=== PATIENT | male | born 1975 | race Caucasian/White ===

== ENCOUNTER → 2017-08-13 12:36 | Outpatient (CLI) | payer OTHER, SELFPAY ==
--- NOTE | 2017-08-13 12:45 | MRI_ITS ---
STUDY: MRI CERVICAL SPINE WITHOUT CONTRAST REASON FOR EXAM: Male, 42 years old. Neck pain and right shoulder pain with right arm pain and weakness TECHNIQUE: Standardized fat and water weighted pulse sequences were obtained in the sagittal and axial planes. COMPARISON: None FINDINGS: Normal foramen magnum and brainstem-cervical cord junction. Normal craniovertebral junction. Normal anterior atlantoaxial articulation. Normal odontoid process. There is reversal of the normal cervical lordosis. Normal vertebral bodies and posterior osseous elements. C2-3: Normal endplates. Normal disc height, signal and morphology. Normal central canal and intervertebral neural foramina. C3-4: Normal endplates. Normal disc height, signal and morphology. Normal central canal and intervertebral neural foramina. C4-5: Disc osteophyte complex with minimal central canal stenosis. C5-6: Disc osteophyte complex with mild central canal stenosis and mild right foraminal stenosis. C6-7: Disc osteophyte complex with mild to moderate central canal stenosis. C7-T1: Normal endplates. Normal disc height, signal and morphology. Normal central canal and intervertebral neural foramina. Normal cervical cord. Normal visualized soft tissue structures. MRI/Spine Cervical (Routine) IMPRESSION: Multilevel degenerative disc disease as described. Mild right foraminal stenosis at C5-6. Mild to moderate central canal stenosis at C6-7. No cord pathology is seen. Electronically Signed: David Gabriel MD at 1:27 EDT Tel , Service support ,
== END ==
PROVIDERS: Family Provider Family Medicine; PCP Family Medicine
DX: M54.2 Cervicalgia (principal); M25.511 Pain in right shoulder; R29.898 Other symptoms and signs involving the musculoskeletal system; R20.0 Anesthesia of skin
CPT/HCPCS: 72141

== ENCOUNTER → 2020-04-02 12:23 | Outpatient (CLI) | payer OTHER, SELFPAY ==
[2020-04-02 15:35] LABS: Absolute Lymphocyte Count 1.96 X10^3/uL (0.83-4.51); Absolute Neutrophil Count 3.5 X10^3/uL (2.0-7.7); Basophil# 0.04 X10^3/uL; Basophil% 0.6 % (0-1); Eosinophil# 0.19 X10^3/uL; Hematocrit 43.3 % (40-54); Hemoglobin 13.8 g/dL (13.0-16.5); Lymphocyte # 1.96 X10^3/ul (4.0); Lymphocyte % 31.3 % (19-41); Mean Corp Hgb Conc 31.9 g/dL (32-36); Mean Corpuscular Hgb 28.6 pg (27.0-32.0); Mean Corpuscular Volume 89.6 fL (80-94); Mean Platelet Vol. 10.1 fl (6.2-12.0); Monocyte# 0.43 X10^3/uL; Monocyte% 6.9 % (0-10); NRBC Flagged by Analyzer 0 % (0-5); Neutrophil # 3.53 X10^3/uL (2.7-7.7); Neutrophil % 56.3 % (47-70); Platelet Count 323 K/mm3 (150-450); RBC Distribution Width CV 12.7 % (11.6-14.6); RBC Distribution Width SD 41.8 fl (35.1-43.9); Red Blood Count 4.83 M/mm3 (4.6-6.2); White Blood Count 6.3 K/mm3 (4.4-11.0)
[2020-04-02 15:56] LABS: ALB/GLOB Ratio 1.1 RATIO (0.9-2.4); AST(SGOT) 21 U/L (15-37); Alanine Aminotransfer ALT/SGPT 32 U/L (16-61); Albumin, Serum 4.1 g/dL (3.2-5.0); Alkaline Phosphatase 104 U/L (45-117); Anion Gap 3 (5-15); BUN 18 mg/dL (7-18); BUN/Creat Ratio 17.8 RATIO (10-20); Calcium,Total 8.9 mg/dL (8.5-10.1); Chloride 106 mmol/L (98-107); Creatinine, Serum 1.01 mg/dL (0.70-1.30); EST Glomerular Filtration Rate 86 mL/min (>60); Est Glom Filt Rate - Afr Amer 104 mL/min (>60); Ferritin 38 ng/mL (26-388); Globulin 3.7 g/dL (2.2-4.2); Glucose 80 mg/dL (74-106); Lipase 311 U/L (73-393); Potassium 3.7 mmol/L (3.5-5.1); Protein, Total 7.8 g/dL (6.4-8.2); Sodium Level 139 mmol/L (136-145)
[2020-04-02 16:05] LABS: Vitamin B12 572 pg/mL (211-911)
[2020-04-05 14:28] LABS: H. Pylori Antibody (IgG) 0.53 (0.00-0.79)
[2020-04-07 07:07] LABS: Beef <0.10 kU/L (Class 0); Corn <0.10 kU/L (Class 0); Egg, Whole <0.10 kU/L (Class 0); Milk (Cow) <0.10 kU/L (Class 0); Peanut <0.10 kU/L (Class 0); Pork <0.10 kU/L (Class 0); Soybean <0.10 kU/L (Class 0); Wheat <0.10 kU/L (Class 0)
[2020-04-07 13:23] LABS: Chocolate <0.10 kU/L (Class 0)
== END ==
PROVIDERS: PCP Family Medicine; Referring Provider Family Medicine; Visit Provider Family Medicine
DX: R53.83 Other fatigue (principal); J30.9 Allergic rhinitis, unspecified; R10.13 Epigastric pain
CPT/HCPCS: 80053; 82607; 82728; 83690; 84443; 85025; 86003; 86005; 86677

== ENCOUNTER → 2020-12-06 09:08 | Outpatient (CLI) | payer OTHER, SELFPAY ==
[2020-12-06 10:43] LABS: Absolute Lymphocyte Count 1.86 X10^3/uL (0.83-4.51); Absolute Neutrophil Count 3.9 X10^3/uL (2.0-7.7); Basophil# 0.04 X10^3/uL; Basophil% 0.6 % (0-1); Eosinophil# 0.12 X10^3/uL; Eosinophils% 1.9 % (0-5); Hematocrit 40.5 % (40-54); Hemoglobin 12.9 g/dL (13.0-16.5); Lymphocyte # 1.86 X10^3/ul (0.83-4.51); Lymphocyte % 28.8 % (19-41); Mean Corp Hgb Conc 31.9 g/dL (32-36); Mean Corpuscular Hgb 25.9 pg (27.0-32.0); Mean Corpuscular Volume 81.2 fL (80-94); Mean Platelet Vol. 10.2 fl (6.2-12.0); Monocyte% 7.7 % (0-10); NRBC Flagged by Analyzer 0 % (0-5); Neutrophil # 3.87 X10^3/uL (2.7-7.7); Neutrophil % 59.9 % (47-70); Platelet Count 281 K/mm3 (150-450); RBC Distribution Width CV 13.8 % (11.6-14.6); RBC Distribution Width SD 39.9 fl (35.1-43.9); Red Blood Count 4.99 M/mm3 (4.6-6.2); White Blood Count 6.5 K/mm3 (4.4-11.0)
[2020-12-06 11:50] LABS: ALB/GLOB Ratio 1.2 RATIO (0.9-2.4); AST(SGOT) 23 U/L (15-37); Alanine Aminotransfer ALT/SGPT 28 U/L (16-61); Albumin, Serum 4.1 g/dL (3.2-5.0); Alkaline Phosphatase 99 U/L (45-117); Anion Gap 4 (5-15); BUN 26 mg/dL (7-18); BUN/Creat Ratio 23.9 RATIO (10-20); Calcium,Total 8.6 mg/dL (8.5-10.1); Chloride 105 mmol/L (98-107); Cholesterol 169 mg/dL (200); Creatinine, Serum 1.09 mg/dL (0.70-1.30); EST Glomerular Filtration Rate 78 mL/min (>60); Est Glom Filt Rate - Afr Amer 95 mL/min (>60); Globulin 3.3 g/dL (2.2-4.2); Glucose 82 mg/dL (74-106); High Density Lipoprotein 32 mg/dL; Potassium 3.8 mmol/L (3.5-5.1); Protein, Total 7.4 g/dL (6.4-8.2); Sodium Level 138 mmol/L (136-145); Thyroid Stim Hormone (TSH) 2.01 uIU/mL (0.358-3.74); Triglycerides 143 mg/dL; Very Low Density Lipoprotein 29 mg/dL (5-40)
== END ==
PROVIDERS: PCP Family Medicine; Referring Provider Family Medicine; Visit Provider Family Medicine
DX: R41.89 Other symptoms and signs involving cognitive functions and awareness (principal); F32.89 Other specified depressive episodes; Z13.220 Encounter for screening for lipoid disorders
CPT/HCPCS: 36415; 80053; 80061; 84443; 85025

== ENCOUNTER → 2021-12-12 | Outpatient (CLI) | payer BC, SELFPAY ==
[2021-12-12 10:07] LABS: Absolute Lymphocyte Count 2.35 X10^3/uL (0.83-4.51); Absolute Neutrophil Count 5.7 X10^3/uL (2.0-7.7); Basophil# 0.04 X10^3/uL; Basophil% 0.4 % (0-1); Eosinophils% 3.2 % (0-5); Hematocrit 45.2 % (40-54); Hemoglobin 14.3 g/dL (13.0-16.5); Lymphocyte # 2.35 X10^3/ul (0.83-4.51); Lymphocyte % 24.7 % (19-41); Mean Corp Hgb Conc 31.6 g/dL (32-36); Mean Corpuscular Hgb 27.1 pg (27.0-32.0); Mean Corpuscular Volume 85.6 fL (80-94); Mean Platelet Vol. 10.1 fl (6.2-12.0); Monocyte# 1.03 X10^3/uL; Monocyte% 10.8 % (0-10); NRBC Flagged by Analyzer 0 % (0-5); Platelet Count 249 K/mm3 (150-450); RBC Distribution Width CV 14.1 % (11.6-14.6); RBC Distribution Width SD 44.1 fl (35.1-43.9); Red Blood Count 5.28 M/mm3 (4.6-6.2); White Blood Count 9.5 K/mm3 (4.4-11.0)
[2021-12-12 10:27] LABS: Microalbumin,Random Urine 8.2 mg/L (NO RANGE EST.)
[2021-12-12 10:35] LABS: Vitamin D,25 Hydroxy 34.6 ng/mL
[2021-12-12 10:44] LABS: ALB/GLOB Ratio 1.3 RATIO (0.9-2.4); AST(SGOT) 30 U/L (15-37); Alanine Aminotransfer ALT/SGPT 31 U/L (16-61); Albumin, Serum 4.2 g/dL (3.2-5.0); Alkaline Phosphatase 102 U/L (45-117); Anion Gap 3 (5-15); BUN 21 mg/dL (7-18); BUN/Creat Ratio 19.8 RATIO (10-20); Chloride 109 mmol/L (98-107); Cholesterol 149 mg/dL (200); Creatinine, Serum 1.06 mg/dL (0.70-1.30); EST Glomerular Filtration Rate 80 mL/min (>60); Est Glom Filt Rate - Afr Amer 97 mL/min (>60); Globulin 3.2 g/dL (2.2-4.2); Glucose 95 mg/dL (74-106); High Density Lipoprotein 35 mg/dL; Potassium 3.8 mmol/L (3.5-5.1); Protein, Total 7.4 g/dL (6.4-8.2); Sodium Level 140 mmol/L (136-145); Triglycerides 125 mg/dL; Very Low Density Lipoprotein 25 mg/dL (5-40)
== END | disposition home or self-care (01) ==
PROVIDERS: PCP Family Medicine; Visit Provider Family Medicine
DX: Z00.00 Encounter for general adult medical examination without abnormal findings (principal)
CPT/HCPCS: 36415; 80053; 80061; 82043; 82306; 82570; 85025

== ENCOUNTER → 2022-06-15 | Outpatient (CLI) | payer BC, SELFPAY ==
[2022-06-15 10:15] LABS: Erythrocyte Sedimentation Rate 2 mm/hr (0-20)
[2022-06-15 10:22] LABS: Vitamin D,25 Hydroxy 26.5 ng/mL
[2022-06-15 10:56] LABS: ALB/GLOB Ratio 1.1 RATIO (0.9-2.4); AST(SGOT) 21 U/L (15-37); Alanine Aminotransfer ALT/SGPT 25 U/L (16-61); Albumin, Serum 3.9 g/dL (3.2-5.0); Alkaline Phosphatase 97 U/L (45-117); Anion Gap 7 (5-15); BUN 18 mg/dL (7-18); BUN/Creat Ratio 17.1 RATIO (10-20); CRP < 2.90 mg/L (0.0-3.0); Calcium,Total 8.9 mg/dL (8.5-10.1); Chloride 107 mmol/L (98-107); Creatinine, Serum 1.05 mg/dL (0.70-1.30); EST Glomerular Filtration Rate 81 mL/min (>60); Est Glom Filt Rate - Afr Amer 98 mL/min (>60); GGTP 30 U/L (15-85); Globulin 3.5 g/dL (2.2-4.2); Glucose 99 mg/dL (74-106); Lipase 190 U/L (73-393); Potassium 3.8 mmol/L (3.5-5.1); Protein, Total 7.4 g/dL (6.4-8.2); Sodium Level 139 mmol/L (136-145)
[2022-06-15 14:10] LABS: Microalbumin:Creatinine Ratio 3.9 mg/g CRE (<30 mg/g CRE)
== END | disposition home or self-care (01) ==
LOC: MFPLAB 08:29
PROVIDERS: PCP Family Medicine; Referring Provider Family Medicine; Visit Provider Family Medicine
DX: I12.9 Hypertensive chronic kidney disease with stage 1 through stage 4 chronic kidney disease, or unspecified chronic kidney disease (principal); N18.2 Chronic kidney disease, stage 2 (mild); R10.84 Generalized abdominal pain
CPT/HCPCS: 36415; 80053; 82043; 82306; 82570; 82977; 83690; 85652; 86140

== ENCOUNTER → 2022-06-19 | Outpatient (CLI) | payer BC, SELFPAY ==
--- NOTE | 2022-06-19 08:00 | US_ITS ---
STUDY: ABDOMINAL ULTRASOUND - RIGHT UPPER QUADRANT REASON FOR VISIT: Male, 47 years old colicky post-prandial from fatty meal abdominal pain and loose b TECHNIQUE: Ultrasound evaluation of the right upper quadrant was performed with real-time and static aaron-scale imaging. TECHNICAL QUALITY: Adequate. COMPARISON: None. FINDINGS: Liver: The liver measures 16.2 cm. There is increased echogenicity consistent with fatty infiltration. The bile ducts are within normal limits. There is hepatic color flow. The direction of portal flow is hepatopetal. There is no demonstrated mass lesion. Gallbladder: Normal distended gallbladder. The gallbladder wall measures 3 mm. There is a negative sonographic Whiteside''s sign. There is no pericholecystic fluid. There are no gallstones. Common Bile Duct (C.B.D.): The common bile duct measures 4 mm. Pancreas: Normal size of the head, body and tail of the pancreas. There is normal echogenicity of the pancreas. There is no demonstrated pancreatic mass or cyst. Right Kidney: Normal size of the right kidney. The right kidney measures 11 cm x 5.2 cm x 5.1 cm. Normal renal cortex. The right cortex measures 1.8 cm. There is no demonstrated renal mass or cyst. There is no right hydronephrosis. US/Abdomen Limited IMPRESSION: Diffuse fatty infiltration of the liver. Electronically Signed: Horace Wan MD at 15:18 EST ,
== END | disposition home or self-care (01) ==
PROVIDERS: PCP Family Medicine; Referring Provider Family Medicine; Visit Provider Family Medicine
DX: R10.84 Generalized abdominal pain (principal)
CPT/HCPCS: 76705

== ENCOUNTER → 2022-06-29 | Outpatient (CLI) | payer BC, SELFPAY ==
--- NOTE | 2022-06-29 07:24 | US_ITS ---
STUDY: ABDOMINAL ULTRASOUND - ELASTOGRAPHY REASON FOR VISIT: Male, 47 years old. Fatty infiltration of the liver. TECHNIQUE: Liver stiffness measurements were obtained on a [employer] RS 85 ultrasound machine using a CA 1-7 probe following the SRU guidelines. 3 measurements were obtained using a 2-D-SWE method. The IQR/M was 19% suggesting a quality data set. TECHNICAL QUALITY: Adequate. COMPARISON: Comparison is made with prior study dated 06/19/2022. FINDINGS: Liver: Fatty infiltration of the liver. Median liver stiffness measured 5.7 kPa. US/Elastography Parenchyma/Organ IMPRESSION: Liver stiffness measures 5.7 kPa compatible with F0-F1 (Normal to mild liver fibrosis) Metavir score. Electronically Signed: Horace Wan MD at 10:32 EST ,
== END | disposition home or self-care (01) ==
PROVIDERS: PCP Family Medicine; Referring Provider Family Medicine; Visit Provider Family Medicine
DX: K76.0 Fatty (change of) liver, not elsewhere classified (principal)
CPT/HCPCS: 76981

== ENCOUNTER → 2022-07-05 | Outpatient (CLI) | payer BC, SELFPAY | END | disposition home or self-care (01) | LOC: LABSPEC 10:59 | PROVIDERS: PCP Family Medicine; Referring Provider Family Medicine; Visit Provider Family Medicine | DX: K76.0 Fatty (change of) liver, not elsewhere classified (principal) | CPT/HCPCS: 87506 ==

== ENCOUNTER 2022-08-18 07:08 | Day surgery (SDC) | payer BC, SELFPAY ==
[2022-08-18 07:32] VITALS: BP 137/85; PULSE 67; RESP 16; TEMP 36.4; O2SAT 100; BMI 31.5
[2022-08-18] MEDS: Lactated Ringers 1,000 ML 15 ML IV (07:41)
--- NOTE | 2022-08-18 08:14 | HP.PCM_ITS ---
HPI - General HPI Narrative LENKA YBARRA, is a 47 M who presents for screening colonoscopy. Patient is never had a colonoscopy in the past. He denies any abdominal pain or blood in the stool. He has no family history of colon cancer. He is not on any blood thinners. [facility] Medical History (Updated 08/14/22 @ 12:14 by Roxanna Guillen) Alcohol use Allergic rhinitis, unspecified Back pain Born premature at 35 weeks of completed gestation CPAP (continuous positive airway pressure) dependence Fatty liver Former smoker GERD (gastroesophageal reflux disease) History of echocardiogram HTN (hypertension) Injury of back Leg cramps Migraine headache Wears glasses Home Medications cyclobenzaprine 10 mg tablet 10 mg PO HS PRN Spasms 07/14/22 [History Last Taken Unknown] famotidine 20 mg tablet 20 mg PO BID 07/14/22 [History Last Taken Unknown] naproxen 500 mg tablet 500 mg PO BID PRN Pain 07/14/22 [History Last Taken Unknown] telmisartan 20 mg tablet 20 mg PO QHS 07/14/22 [History Last Taken Unknown] Allergy/AdvReac Type Severity Reaction Status Date / Time animal dander Allergy Itching Verified 08/18/22 07:32 Environmental Allergies: Allergy Other Verified 08/18/22 07:32 Uncoded house dust Allergy Itching Verified 08/18/22 07:32 mold Allergy Itching Verified 08/18/22 07:32 pollen extracts Allergy Itching Verified 08/18/22 07:32 Family History (Updated 07/14/22 @ 10:17 by Nelida Dela Cruz) Mother Colon polyps Diabetes Surgical History (Updated 07/14/22 @ 10:15 by Nelida Dela Cruz) History of vasectomy Hx of appendectomy Social History (Updated 07/14/22 @ 10:17 by Nelida Dela Cruz) current occupational status: employed Smoking Status: Former smoker Past Medical/Surgical History Planned Operation Planned Operative Procedure/s: CSCOPE OA Previous Hospitalizations/Surgeries HX Hospitalizations: No Any Problems With Anesthesia: No (SHIVERING) You/Your Family Experience Fever (Hyperthermia) With Anes: No Cholinesterase deficiency: No Cardiovascular Hx Hypertension: Yes (BORDERLINE/PREVENTIVE DUE TO FAMILY HX) Respiratory Hx Sleep Apnea: Yes CPAP: Yes BIPAP: No Hx Respiratory Tract Infection/Cold (presently): No Result (for STOP score): Positive Smoking Status: Former smoker Neurological Does patient have nerve stimulator: No Reproduction : No Miscellaneous Recent Exposure to Contagious Disease: No Allergies animal dander Allergy (Verified 08/18/22 07:32) Itching Weekly allergy shot Environmental Allergies: Uncoded Allergy (Verified 08/18/22 07:32) Other Weekly allergy shot house dust Allergy (Verified 08/18/22 07:32) Itching Weekly allergy shot mold Allergy (Verified 08/18/22 07:32) Itching Weekly allergy shot pollen extracts Allergy (Verified 08/18/22 07:32) Itching Weekly allergy shot Discharge Is Pt Admitted From a Group Home, or a Senior Living: No After D/C, Where Do you Plan to Go: Return Home Vital Signs Vital Signs Vital Signs: 08/18/22 07:32 08/18/22 07:32 Temperature 97.6 F L Temperature Source Temporal Pulse Rate 67 Respiratory Rate 16 Respiratory Pattern Normal Blood Pressure 137/85 H Blood Pressure Mean 102 Blood Pressure Source Monitor Blood Pressure Position Semi-Fowlers Blood Pressure Location Left Arm Pulse Ox 100 Oxygen Delivery Method Room Air Weight Weight: 207 lb 3.752 oz Body Mass Index (BMI) 31.5 Physical Exam Const alert and oriented x3 HEENT normocephalic Eyes PERRL Resp normal respiratory effort and normal air movement Cardio regular rate and regular rhythm GI soft to palpation, non-tender and non-distended Extremity normal to inspection Assessment & Plan Assessment/Plan (1) Encounter for screening for malignant neoplasm of colon: PLAN: I explained endoscopy in detail to the patient. I explained the risks including but not limited to stroke or heart attack with anesthesia, perforation of the GI tract, bleeding, infection. I explained that any of these could necessitate further emergency surgery. The patient understands and all questions were answered sufficiently. The patient wishes to proceed with proced ure. Eddie Hightower MD Pager: [facility] [address] [place] [address], [address] [place] [address] Office: Surgery Risks - Colonoscopy Risks Include but are not Limited To: Risks include but are not limited to: Bleeding, perforation requiring further surgery, inability to complete colonoscopy requiring barium enema.
[2022-08-18 08:39] VITALS: BP 110/75; BP 137/85; PULSE 70; RESP 16; TEMP 36.4; O2SAT 98
--- NOTE | 2022-08-18 08:39 | OP.COLON_ITS ---
Patient Name: Justin Scruggs Procedure Date: 08/18/2022 8:20 AM Date of : 1975 Age: 47 Procedure: Colonoscopy Indications: Screening for colorectal malignant neoplasm Providers: Eddie Hightower MD Referring MD: Eddie Hightower MD Medicines: Monitored Anesthesia Care Patient Profile: This is a 47 year old male. Refer to note in patient chart for documentation of history and physical. Last Colonoscopy: none. The patient's first colonoscopy is today. Complications: No immediate complications. Procedure: Pre-Anesthesia Assessment: - Prior to the procedure, a History and Physical was performed, and patient medications and allergies were reviewed. The patient's tolerance of previous anesthesia was also reviewed. The risks and benefits of the procedure and the sedation options and risks were discussed with the patient. All questions were answered, and informed consent was obtained. Prior Anticoagulants: The patient has taken no previous anticoagulant or antiplatelet agents. After reviewing the risks and benefits, the patient was deemed in satisfactory condition to undergo the procedure. After I obtained informed consent, the scope was passed under direct vision. Throughout the procedure, the patient's blood pressure, pulse, and oxygen saturations were monitored continuously. The Colonoscope was introduced through the anus and advanced to the cecum, identified by the appendiceal orifice, ileocecal valve and palpation. The colonoscopy was performed without difficulty. The patient tolerated the procedure well. The quality of the bowel preparation was good. Scope In: 8:25:23 AM Scope Withdrawal Time 0 hours 6 minutes 1 second Scope Out: 8:35:31 AM Total Procedure Duration Time 0 hours 10 minutes 8 seconds Findings: The entire examined colon appeared normal on direct and retroflexion views. Impression: - The entire examined colon is normal on direct and retroflexion views. - No specimens collected. Recommendation: - Discharge patient to home. - Resume previous diet. - Continue present medications. - Repeat colonoscopy in 10 years for screening purposes. Procedure Code(s): --- Professional --- 60671, Colonoscopy, flexible; diagnostic, including collection of specimen(s) by brushing or washing, when performed (separate procedure) Diagnosis Code(s): --- Professional --- Z12.11, Encounter for screening for malignant neoplasm of colon CPT copyright 2017 [employer]. All rights reserved. The codes documented in this report are preliminary and upon heater installer review may be revised to meet current compliance requirements. Eddie Hightower MD 08/18/2022 8:39:17 AM This report has been signed electronically. Number of Addenda: 0 Note Initiated On: 08/18/2022 8:20 AM
--- NOTE | 2022-08-18 08:40 | OP.CCLET_ITS ---
08/18/2022 Ozzy Morejon [address] [place] [address] Re : Colonoscopy procedure for Justin [facility] Dear Dr. Morejon This procedure was performed on Thursday, August 18, 2022. My impressions and recommendations are as follows: Impressions : - The entire examined colon is normal on direct and retroflexion views. - No specimens collected. Recommendations : - Discharge patient to home. - Resume previous diet. - Continue present medications. - Repeat colonoscopy in 10 years for screening purposes. My findings are described in the full procedure note, which is enclosed. If I can be of further assistance, please feel free to contact me at Doctor phone number(s): , Work: . Sincerely, Eddie Hightower MD 08/18/2022 8:39:17 AM This report has been signed electronically.
[2022-08-18 08:45] VITALS: BP 127/77; BP 137/85; PULSE 68; RESP 16; O2SAT 94
[2022-08-18 08:50] VITALS: BP 120/76; BP 137/85; PULSE 65; RESP 16; O2SAT 95
[2022-08-18 08:55] VITALS: BP 128/73; BP 137/85; PULSE 60; RESP 14; TEMP 36.4; O2SAT 94
[2022-08-18 09:21] VITALS: BP 137/85
== END 2022-08-18 09:24 | disposition home or self-care (01) ==
LOC: EN 07:09 → AC 07:10
PROVIDERS: PCP Family Medicine; Referring Provider Family Medicine; Visit Provider Surgery
PROC: 0DJD8ZZ Inspection of Lower Intestinal Tract, Via Natural or Artificial Opening Endoscopic (ICD-10-PCS; CPT 45378; principal; 2022-08-18 08:25)
DX: Z12.11 Encounter for screening for malignant neoplasm of colon (principal); I10 Essential (primary) hypertension; Z87.891 Personal history of nicotine dependence
CPT/HCPCS: 45378; J7120; J2405

== ENCOUNTER → 2023-02-05 | Outpatient (CLI) | payer BC, SELFPAY ==
[2023-02-05 11:35] LABS: AST(SGOT) 20 U/L (15-37); Alanine Aminotransfer ALT/SGPT 31 U/L (16-61); Albumin, Serum 3.6 g/dL (3.2-5.0); Alkaline Phosphatase 104 U/L (45-117); Anion Gap 7 (5-15); BUN 17 mg/dL (7-18); BUN/Creat Ratio 14.2 RATIO (10-20); Calcium,Total 8.3 mg/dL (8.5-10.1); Chloride 109 mmol/L (98-107); Cholesterol 169 mg/dL (200); EST Glomerular Filtration Rate 69 mL/min (>60); Est Glom Filt Rate - Afr Amer 84 mL/min (>60); Globulin 3.5 g/dL (2.2-4.2); Glucose 101 mg/dL (74-106); High Density Lipoprotein 33 mg/dL; Potassium 3.9 mmol/L (3.5-5.1); Protein, Total 7.1 g/dL (6.4-8.2); Sodium Level 140 mmol/L (136-145); Triglycerides 192 mg/dL; Very Low Density Lipoprotein 38 mg/dL (5-40)
[2023-02-05 11:53] LABS: Microalbumin,Random Urine 8.6 mg/L (NO RANGE EST.); Microalbumin:Creatinine Ratio 3.1 mg/g CRE (<30 mg/g CRE)
== END | disposition home or self-care (01) ==
PROVIDERS: PCP Family Medicine; Referring Provider Family Medicine; Visit Provider Family Medicine
DX: I12.9 Hypertensive chronic kidney disease with stage 1 through stage 4 chronic kidney disease, or unspecified chronic kidney disease (principal); Z13.220 Encounter for screening for lipoid disorders; N18.2 Chronic kidney disease, stage 2 (mild)
CPT/HCPCS: 36415; 80053; 80061; 82043; 82570

== ENCOUNTER → 2023-02-20 | Outpatient (CLI) | payer BC, SELFPAY ==
--- NOTE | 2023-02-20 10:08 | RAD_ITS ---
INDICATION: possible foreign body, thorn left finger -- Left ring finger EXAMINATION/TECHNIQUE: X-RAY - LEFT HAND XR Fingers Min 2 Views 3 VIEWS COMPARISON: FINDINGS: SOFT TISSUES: No soft tissue swelling or gas. No radiopaque foreign body. BONES/JOINTS: No acute fracture or subluxation.. Normal alignment. Preservation of the joint space.. No sclerotic or destructive changes observed. RAD/Finger(s) Min 2 Views IMPRESSION: Negative. Electronically Signed: Sid Forrester MD at 10:46 EDT ,
== END | disposition home or self-care (01) ==
LOC: MTRAD 10:08
PROVIDERS: PCP Family Medicine; Referring Provider Nurse Practitioner Family; Visit Provider Nurse Practitioner Family
DX: S60.459A Superficial foreign body of unspecified finger, initial encounter (principal); M79.645 Pain in left finger(s)
CPT/HCPCS: 73140

== ENCOUNTER → 2023-08-14 | Outpatient (CLI) | payer BC, SELFPAY ==
[2023-08-14 11:01] LABS: ALB/GLOB Ratio 1.1 RATIO (0.9-2.4); AST(SGOT) 25 U/L (15-37); Alanine Aminotransfer ALT/SGPT 33 U/L (16-61); Albumin, Serum 3.8 g/dL (3.2-5.0); Alkaline Phosphatase 102 U/L (45-117); Anion Gap 7 (5-15); BUN 14 mg/dL (7-18); BUN/Creat Ratio 14.4 RATIO (10-20); Chloride 108 mmol/L (98-107); Creatinine, Serum 0.97 mg/dL (0.70-1.30); EST Glomerular Filtration Rate 88 mL/min (>60); Est Glom Filt Rate - Afr Amer 107 mL/min (>60); Globulin 3.5 g/dL (2.2-4.2); Glucose 109 mg/dL (74-106); Potassium 3.9 mmol/L (3.5-5.1); Protein, Total 7.3 g/dL (6.4-8.2); Sodium Level 139 mmol/L (136-145)
== END | disposition home or self-care (01) ==
LOC: MFPLAB 08:35
PROVIDERS: PCP Family Medicine; Visit Provider Family Medicine
DX: I10 Essential (primary) hypertension (principal)
CPT/HCPCS: 36415; 80053

== ENCOUNTER → 2023-10-30 | Outpatient (CLI) | payer BC, SELFPAY ==
--- NOTE | 2023-10-30 15:57 | RAD_ITS ---
STUDY: X-RAY - RIGHT WRIST REASON FOR EXAM: Male, 48 years old. Wrist pain. Right wrist pain and swelling after falling yesterday. TECHNIQUE: 3 views of the right wrist were obtained. COMPARISON: None. FINDINGS: Normal visualized distal radius and ulna. Normal radiocarpal articulation. Normal distal radioulnar articulation. Normal carpal bones. Normal carpal articulations. Normal carpometacarpal articulation of the thumb. Normal second through fifth carpometacarpal articulations. Normal visualized metacarpal bones. The soft tissue structures are unremarkable. There is no demonstrated acute fracture. RAD/Wrist min 3 Views IMPRESSION: Normal x-ray examination of the right wrist. Electronically Signed: Raheem Capellan MD at 11:44 EDT ,
== END | disposition home or self-care (01) ==
LOC: MTRAD 15:57
PROVIDERS: PCP Family Medicine; Referring Provider Family Medicine; Visit Provider Family Medicine
DX: M25.531 Pain in right wrist (principal)
CPT/HCPCS: 73110

== ENCOUNTER → 2023-11-08 | Outpatient (CLI) | payer BC, SELFPAY ==
--- NOTE | 2023-11-08 14:21 | RAD_ITS ---
STUDY: X-RAY - RIGHT WRIST REASON FOR EXAM: Male, 48 years old. Evaluate for distal radial fracture. TECHNIQUE: 3 view(s) of the wrist were obtained. COMPARISON: October 30, 2023 FINDINGS: Oblique nondisplaced fracture at the base of the radial styloid with intra-articular extension. Normal radiocarpal articulation. Normal distal radioulnar articulation. Normal carpal bones. Normal carpal articulations. Normal carpometacarpal articulation of the thumb. Normal second through fifth carpometacarpal articulations. Normal visualized metacarpal bones. Diffuse mild soft tissue swelling. RAD/Wrist min 3 Views IMPRESSION: Radial styloid fracture with intra-articular extension. Soft tissue swelling. Electronically Signed: Kevin Chan MD at 15:02 EDT ,
== END | disposition home or self-care (01) ==
LOC: MTRAD 14:17
PROVIDERS: PCP Family Medicine; Referring Provider Family Medicine; Visit Provider Family Medicine
DX: S52.501A Unspecified fracture of the lower end of right radius, initial encounter for closed fracture (principal); X58.XXXA Exposure to other specified factors, initial encounter
CPT/HCPCS: 73110

== ENCOUNTER → 2023-11-28 | Outpatient (CLI) | payer BC, SELFPAY ==
--- NOTE | 2023-11-28 16:21 | RAD_ITS ---
STUDY: X-RAY - RIGHT WRIST REASON FOR EXAM: Male, 48 years old. fu fx TECHNIQUE: 3 view(s) of the wrist were obtained. COMPARISON: None. FINDINGS: Healing nondisplaced oblique fracture of the radial styloid (Garcia fracture) with bony bridging. Normal radiocarpal articulation. Normal distal radioulnar articulation. Normal carpal bones. Normal carpal articulations. Normal carpometacarpal articulation of the thumb. Normal second through fifth carpometacarpal articulations. Normal visualized metacarpal bones. The soft tissue structures are unremarkable. RAD/Wrist min 3 Views IMPRESSION: Healing Garcia fracture. Electronically Signed: Ihsan Wilhelm MD at 16:43 EDT ,
== END | disposition home or self-care (01) ==
PROVIDERS: PCP Family Medicine; Referring Provider Family Medicine; Visit Provider Family Medicine
DX: S52.501A Unspecified fracture of the lower end of right radius, initial encounter for closed fracture (principal); I10 Essential (primary) hypertension; X58.XXXA Exposure to other specified factors, initial encounter
CPT/HCPCS: 73110

== ENCOUNTER → 2024-04-21 | Outpatient (CLI) | payer BC, SELFPAY ==
--- NOTE | 2024-04-21 07:49 | CDU_ITS ---
Reason For Study: Amaurosis Fugax Rt. Velocities/BP Lt. Velocities/BP Prox CCA 120/9 cm/sec. Prox CCA 101/24 cm/sec. Mid CCA 129/19 cm/sec. Mid CCA 97/23 cm/sec. Dist CCA 107/29 cm/sec. Dist CCA 99/23 cm/sec. Prox ICA 91/23 cm/sec. Prox ICA 103/30 cm/sec. Mid ICA 84/24 cm/sec. Mid ICA 78/30 cm/sec. Dist ICA 95/38 cm/sec. Dist ICA 84/28 cm/sec. Rt. ICA/CCA = 0.7. Lt. ICA/CCA = 1.1. Prox ECA 138/23 cm/sec. Prox ECA 110/18 cm/sec. Rt. Vert. 60/16 cm/sec. Lt. Vert. 62/17 cm/sec. Right Extracranial There is intimal thickening but no significant atherosclerotic plaque noted in the right common carotid artery. There is no significant atherosclerotic plaque noted in the right internal carotid artery. There is no significant atherosclerotic plaque noted in the right external carotid artery. Antegrade flow is noted in the right vertebral artery. Left Extracranial There is intimal thickening but no significant atherosclerotic plaque noted in the left common carotid artery. There is no significant atherosclerotic plaque noted in the left internal carotid artery. There is no significant atherosclerotic plaque noted in the left external carotid artery. Antegrade flow is noted in the left vertebral artery. Procedure Carotid Duplex [id number]. This is a Carotid Duplex examination using B-mode, color flow and specral Doppler. Exam performed in department. VL/Carotid Duplex Ultrasound Interpretation Summary Normal right extracranial internal carotid. Normal left extracranial internal carotid. Patent and antegrade vertebrals bilaterally. Ordering Physician: Ozzy Morejon Referring Physician: Ozzy Morejon Performed By: Chacha Jarrett, RDCS, RVT
== END | disposition home or self-care (01) ==
PROVIDERS: PCP Family Medicine; Referring Provider Family Medicine; Visit Provider Family Medicine
DX: G45.3 Amaurosis fugax (principal)
CPT/HCPCS: 93880

== ENCOUNTER → 2024-05-12 | Outpatient (CLI) | payer BC, SELFPAY ==
--- NOTE | 2024-05-12 10:06 | MRI_ITS ---
STUDY: MRI BRAIN WITHOUT CONTRAST REASON FOR EXAM: Male, 49 years old. amaurosis fugax, chronic headaches, new onset visual aura TECHNIQUE: Standardized multiplanar fat and water weighted pulse sequences were obtained. COMPARISON: None. FINDINGS: Normal size of the ventricles and extra-axial spaces for the patient''s age. Normal white matter tracts of the supratentorial brain. There is no evidence for recent intracranial ischemia or other cause of cytotoxic edema on diffusion weighted imaging (DWI). Normal T2* images of the brain without demonstrated susceptibility artifact. There is no demonstrated hemosiderin stain. Normal bilateral basal ganglia. Normal thalami. There is no extra-axial fluid accumulation. Normal flow voids within the major intracranial circulation suggesting patency by spin echo criteria. Normal sella turcica, pituitary gland, infundibular stalk, optic chiasm and hypothalamus. Normal tectal plate and pineal gland. Normal midbrain, phillip and medulla. Normal cerebellum. Normal basal cisterns. 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 Normal bilateral internal auditory canals. No demonstrated orbital abnormality, within the constraints of a routine brain study. Normal visualized paranasal sinuses. Normal calvarium and skull base. Normal visualized soft tissue structures. Normal visualized upper cervical spine. MRI/Brain without Contrast IMPRESSION: Normal unenhanced MRI of the brain. Electronically Signed: Ihsan Wilhelm MD at 13:29 EST ,
== END | disposition home or self-care (01) ==
PROVIDERS: PCP Family Medicine; Referring Provider Family Medicine; Visit Provider Family Medicine
DX: G45.3 Amaurosis fugax (principal)
CPT/HCPCS: 70551

== ENCOUNTER → 2024-05-30 | Outpatient (CLI) | payer BC, SELFPAY ==
[2024-05-30 11:07] LABS: ALB/GLOB Ratio 1.1 RATIO (0.9-2.4); AST(SGOT) 21 U/L (15-37); Alanine Aminotransfer ALT/SGPT 30 U/L (16-61); Albumin, Serum 3.9 g/dL (3.2-5.0); Alkaline Phosphatase 98 U/L (45-117); Anion Gap 7 (5-15); BUN 15 mg/dL (7-18); BUN/Creat Ratio 14.9 RATIO (10-20); Calcium,Total 9.2 mg/dL (8.5-10.1); Chloride 108 mmol/L (98-107); Cholesterol 178 mg/dL (200); Creatinine, Serum 1.01 mg/dL (0.70-1.30); EST Glomerular Filtration Rate 84 mL/min (>60); Est Glom Filt Rate - Afr Amer 102 mL/min (>60); Globulin 3.7 g/dL (2.2-4.2); Glucose 102 mg/dL (74-106); High Density Lipoprotein 37 mg/dL; Potassium 3.7 mmol/L (3.5-5.1); Protein, Total 7.6 g/dL (6.4-8.2); Sodium Level 140 mmol/L (136-145); Triglycerides 166 mg/dL; Very Low Density Lipoprotein 33 mg/dL (5-40)
[2024-05-30 11:09] LABS: Microalbumin,Random Urine 12.6 mg/L (NO RANGE EST.); Microalbumin:Creatinine Ratio 6.5 mg/g CRE (<30 mg/g CRE)
== END | disposition home or self-care (01) ==
LOC: MTLAB 08:07
PROVIDERS: PCP Family Medicine; Referring Provider Family Medicine; Visit Provider Family Medicine
DX: Z00.01 Encounter for general adult medical examination with abnormal findings (principal); I12.9 Hypertensive chronic kidney disease with stage 1 through stage 4 chronic kidney disease, or unspecified chronic kidney disease; K76.0 Fatty (change of) liver, not elsewhere classified; N18.2 Chronic kidney disease, stage 2 (mild); Z13.220 Encounter for screening for lipoid disorders
CPT/HCPCS: 36415; 80053; 80061; 82043; 82570

== ENCOUNTER → 2025-03-06 | Outpatient (CLI) | payer BC, SELFPAY ==
--- OUTSIDE RECORDS SUMMARY | 2025-03-06 11:15 | XMS RPT_ITS | CCD ---
Author Organization [facility] Care Team Providers Care Licensed Club Manager Name Role Phone Dr. Ozzy Morejon Primary Care Provider Nelida Dela Cruz Attending Provider Unavailable Dr. Ozzy Morejon Referring Provider Dr. Eddie Hightower Attending Provider Dr. Eddie Hightower Other Provider Dr. Ozzy Morejon Primary Care Provider Dr. Ozzy Morejon Referring Provider [phone] Mervin Guerrero Attending Provider [phone] Ozzy Morejon Primary Care Unavailable Anshul Alfred Attending Unavailable Anshul Alfred Referring Unavailable Jean-Pierre, Ozzy Primary Care Unavailable Anshul Alfred Attending Unavailable Anshul Alfred Referring Unavailable Judy, Ozzy Attending Unavailable Morejon, Ozzy Referring Unavailable Morejon, Ozzy Primary Care Unavailable Morejon, Ozzy Primary Care Unavailable Morejon, Ozzy Attending Unavailable Morejon, Ozzy Referring Unavailable Morejon, Ozzy Attending Unavailable Morejon, Ozzy Referring Unavailable Morejon, Ozzy Primary Care Unavailable Morejon, Ozzy Attending Unavailable Morejon, Ozzy Referring Unavailable Morejon, Ozzy Primary Care Unavailable Morejon, Ozzy Primary Care Unavailable Morejon, Ozzy Attending Unavailable Morejon, Ozzy Primary Care Unavailable Morejon, Ozzy Attending Unavailable Morejon, Ozzy Referring Unavailable Allergies Allergy Classification Reported Allergen(s) Allergy Type Date of Onset Reaction(s) Facility (3 sources) house dust allergenic extract Drug Allergy 3 [facility] (3 sources) Mold Extract Drug Allergy 3 [facility] (3 sources) Pollen Allergy to substance 3 [facility] (4 sources) animal dander; Translations: [animal dander] Allergy to substance 3 Itching [facility] (4 sources) Environmental Allergies: Uncoded; Translations: [Environmental Allergies: Uncoded] Allergy to substance 3 Other [facility] (1 source) house dust allergenic extract Drug Allergy 3 [facility] (1 source) Mold Extract Drug Allergy 3 [facility] (1 source) Pollen Drug allergy (disorder) 3 [facility] Medications Current Medications Medication Drug Class(es) Dates Sig (Normalized) Sig (Original) cyclobenzaprine hydrochloride 10 mg oral tablet (3 sources) Muscle Relaxant Start: 07-14-2022 take 10 mg by mouth at bedtime Cyclobenzaprine Active 10 MG PO BEDTIME July 14, 2022 1:00am famotidine 20 mg oral tablet (3 sources) Histamine-2 Receptor Antagonist Start: 07-14-2022 take 20 mg by mouth twice daily Famotidine Active 20 MG PO TWICE A DAY July 14, 2022 1:00am naproxen 500 mg oral tablet (3 sources) Nonsteroidal Anti-inflammatory Drug Start: 07-14-2022 take 500 mg by mouth twice daily Naproxen Active 500 MG PO TWICE A DAY July 14, 2022 1:00am telmisartan 20 mg oral tablet (3 sources) Angiotensin 2 Receptor Moises Start: 07-14-2022 take 20 mg by mouth at bedtime Telmisartan Active 20 MG PO AT BEDTIME July 14, 2022 1:00am Problems Active Problems Problem Classification Problem Date Documented Da te Episodic/Chronic E Codes: Unspecified (3 sources) Traumatic AND/OR non-traumatic injury; Translations: [Activity, gardening and landscaping] 02-22-2023 Episodic Essential hypertension (1 source) Essential (primary) hypertension; Translations: [Essential (primary) hypertension] Onset: 08-20-2023 Chronic Other connective tissue disease (2 sources) Pain in finger; Translations: [Pain in left finger(s)] 02-22-2023 Episodic Other connective tissue disease (2 sources) Foreign body granuloma of soft tissue of left hand; Translations: [Foreign body granuloma of soft tissue, not elsewhere classified, left hand] 02-22-2023 Episodic Other connective tissue disease (2 sources) Swelling of finger ; Translations: [Other specified soft tissue disorders] 02-22-2023 Episodic Other connective tissue disease (1 source) Pain in left finger(s); Translations: [Pain in limb] 02-20-2023 Episodic Other connective tissue disease (1 source) Foreign body granuloma of soft tissue, not elsewhere classified, left hand; Translations: [Foreign body granuloma of skin and subcutaneous tissue] 02-20-2023 Episodic Other connective tissue disease (1 source) Other specified soft tissue disorders; Translations: [Swelling of limb] 02-20-2023 Episodic Other ear and sense organ disorders (2 sources) Hearing disorder; Translations: [Unspecified hearing loss, unspecified ear] 02-20-2023 Chronic Other screening for suspected conditions (not mental disorders or infectious disease) (4 sources) Patient encounter status; Translations: [Encounter for screening for malignant neoplasm of colon] 07-14-2022 Episodic Other upper respiratory disease (2 sources) Seasonal allergy; Translations: [Other seasonal allergic rhinitis] 02-20-2023 Chronic Residual codes; unclassified (3 sources) Dependence on continuous positive airway pressure ventilation; Translations: [Dependence on other enabling machines and devices] 07-14-2022 Chronic Superficial injury; contusion (3 sources) Superficial foreign body of left ring finger; Translations: [Superficial foreign body of left ring finger, initial encounter] 02-22-2023 Episodic Transient cerebral ischemia (1 source) Amaurosis fugax; Translations: [Amaurosis fugax] Onset: 06-05-2024 Chronic Past or Other Problems Problem Classification Problem Date Documented Da te Episodic/Chronic Fracture of upper limb (1 source) Unspecified fracture of the lower end of right radius, initial encounter for closed fracture; Translations: [Unspecified fracture of the lower end of right radius, initial encounter for closed fracture] Onset: 12-13-2023 Episodic Other non-traumatic joint disorders (1 source) Pain in right wrist; Translations: [Pain in right wrist] Onset: 11-07-2023 Episodic Results Test Name Value Interpretation Reference Range Facility Comprehensive Metabolic Prof mejeannette 05-30-2024 Albumin [Mass/Vol] 3.9 g/dL Normal 3.2-5.0 [facility] Comment on above: Order Comment: Order Date: 02/12/24 Order Info: 0786-1 - CMP Order Info: [id number] - LIPID Performed By: #### L 502.0250, L500.4050, L500.4100 #### [facility] [address] [place], [address] Albumin/Globulin [Mass ratio] 1.1 {ratio} Normal 0.9-2.4 [facility] Comment on above: Order Comment: Order Date: 02/12/24 Order Info: 0786-1 - CMP Order Info: [id number] - LIPID Performed By: #### L 502.0250, L500.4050, L500.4100 #### [facility] [address] [place], [address] ALK P 98 U/L Normal 45-117 [facility] Comment on above: Order Comment: Order Date: 02/12/24 Order Info: 0786-1 - CMP Order Info: [id number] - LIPID Performed By: #### L 502.0250, L500.4050, L500.4100 #### [facility] [address] [place], [address] ALT [Catalytic activity/Vol] 30 U/L Normal 16-61 [facility] Comment on above: Order Comment: Order Date: 02/12/24 Order Info: 0786-1 - CMP Order Info: [id number] - LIPID Performed By: #### L 502.0250, L500.4050, L500.4100 #### [facility] [address] [place], [address] AST [Catalytic activity/Vol] 21 U/L Normal 15-37 [facility] Comment on above: Order Comment: Order Date: 02/12/24 Order Info: 0786-1 - CMP Order Info: [id number] - LIPID Performed By: #### L 502.0250, L500.4050, L500.4100 #### [facility] [address] [place], [address] Bilirubin [Mass/Vol] 0.50 mg/dL Normal 0.20-1.00 [facility] Comment on above: Order Comment: Order Date: 02/12/24 Order Info: 0786-1 - CMP Order Info: [id number] - LIPID Result Comment: For patients on eltrombopag therapy, use of Dimension [place] TBIL is not recommended. Performed By: #### L 502.0250, L500.4050, L500.4100 #### [facility] [address] [place], [address] BUN/CRE 14.9 RATIO Normal 10-20 [facility] Comment on above: Order Comment: Order Date: 02/12/24 Order Info: 0786-1 - CMP Order Info: [id number] - LIPID Performed By: #### L 502.0250, L500.4050, L500.4100 #### [facility] [address] [place], [address] CA,Total 9.2 mg/dL Normal 8.5-10.1 [facility] Comment on above: Order Comment: Order Date: 02/12/24 Order Info: 0786-1 - CMP Order Info: [id number] - LIPID Performed By: #### L 502.0250, L500.4050, L500.4100 #### [facility] [address] [place], [address] Chloride [Moles/Vol] 108 mmol/L High 98-107 [facility] Comment on above: Order Comment: Order Date: 02/12/24 Order Info: 0786-1 - CMP Order Info: [id number] - LIPID Performed By: #### L 502.0250, L500.4050, L500.4100 #### [facility] [address] [place], [address] CO2 [Moles/Vol] 25.0 mmol/L Normal 21.0-32.0 [facility] Comment on above: Order Comment: Order Date: 02/12/24 Order Info: 0786-1 - CMP Order Info: [id number] - LIPID Performed By: #### L 502.0250, L500.4050, L500.4100 #### [facility] [address] [place], [address] Creatinine [Mass/Vol] 1.01 mg/dL Normal 0.70-1.30 [facility] Comment on above: Order Comment: Order Date: 02/12/24 Order Info: 0786- - CMP Order Info: [id number] - LIPID Result Comment: The validity of the calculated GFR GFRAA in patients over 70 years has not been determined. Clinical correlation is essential. Performed By: #### L 502.0250, L500.4050, L500.4100 #### [facility] [address] [place], [address] EST GFR - AA 102 mL/min Normal >60 [facility] Comment on above: Order Comment: Order Date: 02/12/24 Order Info: 0786 - CMP Order Info: [id number] - LIPID Result Comment: Afri can Australian GFR Calc Performed By: #### L 502.0250, L500.4050, L500.4100 #### [facility] [address] [place], [address] GAP 7 Normal 5-15 [facility] Comment on above: Order Comment: Order Date: 02/12/24 Order Info: 0786-1 - CMP Order Info: [id number] - LIPID Performed By: #### L 502.0250, L500.4050, L500.4100 #### [facility] [address] [place], [address] GFR/1.73 sq M.predicted among non-blacks MDRD (S/P/Bld) [Vol rate/Area] 84 mL/min/{1.73_m2} Normal >60 [facility] Comment on above: Order Comment: Order Date: 02/12/24 Order Info: 0786-1 - CMP Order Info: [id number] - LIPID Result Comment: Non- GFR Calc Performed By: #### L 502.0250, L500.4050, L500.4100 #### [facility] [address] [place], [address] Globulin (S) [Mass/Vol] 3.7 g/dL Normal 2.2-4.2 [facility] Comment on above: Order Comment: Order Date: 02/12/24 Order Info: 0786- - CMP Order Info: [id number] - LIPID Performed By: #### L 502.0250, L500.4050, L500.4100 #### [facility] [address] [place], [address] Glucose [Mass/Vol] 102 mg/dL Normal 74-106 [facility] Comment on above: Order Comment: Order Date: 02/12/24 Order Info: 0786 - CMP Order Info: [id number] - LIPID Result Comment: Fast ing Glucose result from 100 to 125 mg/dL suggests IMPAIRED HOMEOSTASIS per A.D.A. criteria. Performed By: #### L 502.0250, L500.4050, L500.4100 #### [facility] [address] [place], [address] Potassium [Moles/Vol] 3.7 mmol/L Normal 3.5-5.1 [facility] Comment on above: Order Comment: Order Date: 02/12/24 Order Info: 0786- - CMP Order Info: [id number] - LIPID Performed By: #### L 502.0250, L500.4050, L500.4100 #### [facility] [address] [place], [address] Sodium [Moles/Vol] 140 mmol/L Normal 136-145 [facility] Comment on above: Order Comment: Order Date: 02/12/24 Order Info: 0786- - CMP Order Info: [id number] - LIPID Performed By: #### L 502.0250, L500.4050, L500.4100 #### [facility] [address] [place], [address] T PROT 7.6 g/dL Normal 6.4-8.2 [facility] Comment on above: Order Comment: Order Date: 02/12/24 Order Info: 0786-1 - CMP Order Info: [id number] - LIPID Performed By: #### L 502.0250, L500.4050, L500.4100 #### [facility] [address] [place], [address] Urea nitrogen [Mass/Vol] 15 mg/dL Normal 7-18 [facility] Comment on above: Order Comment: Order Date: 02/12/24 Order Info: 0786-1 - CMP Order Info: [id number] - LIPID Performed By: #### L 502.0250, L500.4050, L500.4100 #### [facility] [address] [place], [address] Lipid Profileon 05-30-2024 Cholesterol [Mass/Vol] 178 mg/dL Normal 200 [facility] Comment on above: Order Comment: Order Date: 02/12/24 Order Info: 0786-1 - CMP Order Info: [id number] - LIPID Result Comment: <200 mg/dL Desirable 200-240 mg/dL Borderline >240 mg/dL High Risk Performed By: #### L 502.0250, L500.4050, L500.4100 #### [facility] [address] [place], [address] Cholesterol in HDL [Mass/Vol] 37 mg/dL Low [facility] Comment on above: Order Comment: Order Date: 02/12/24 Order Info: 0786-1 - CMP Order Info: [id number] - LIPID Result Comment: The drugs N-Acetylcysteine and Metamizole may falsely depress this assay. Reference Range HDL <40 mg/dL Low HDL Cholesterol HDL >or= 60 mg/dL High HDL Cholesterol Performed By: #### L 502.0250, L500.4050, L500.4100 #### [facility] [address] [place], [address] Cholesterol in LDL [Mass/Vol] 108 mg/dL Normal 0-130 [facility] Comment on above: Order Comment: Order Date: 02/12/24 Order Info: 0786-1 - CMP Order Info: [id number] - LIPID Performed By: #### L 502.0250, L500.4050, L500.4100 #### [facility] [address] [place], [address] Cholesterol in VLDL [Mass/Vol] 33 mg/dL Normal 5-40 [facility] Comment on above: Order Comment: Order Date: 02/12/24 Order Info: 0786-1 - CMP Order Info: [id number] - LIPID Performed By: #### L 502.0250, L500.4050, L500.4100 #### [facility] [address] [place], [address] Triglyceride [Mass/Vol] 166 mg/dL Normal [facility] Comment on above: Order Comment: Order Date: 02/12/24 Order Info: 0786-1 - [facility] Order Info: [id number] - LIPID Result Comment: The drugs N-Acetylcysteine and Metamizole may falsely depress this assay. Serum Triglycerides Reference Interval Normal <150 mg/dL Borderline high 150 - 199 mg/dL High 200 - 499 mg/dL Very High > or = 500 mg/dL Performed By: #### L 502.0250, L500.4050, L500.4100 #### [facility] [address] [place], [address] Microalb:Creat Ratio,Random URon 05-30-2024 Creatinine [Mass/Vol] 195.00 mg/dL Normal NO RANGE EST . [facility] Comment on above: Order Comment: Order Date: 02/12/24 Order Info: [id number] - MIACRE Performed By: #### L 502.0250, L500.4050, L500.4100 #### [facility] [address] [place], [address] MALB:CRE 6.5 mg/g CRE Normal <30 mg/g CRE [facility] Comment on above: Order Comment: Order Date: 02/12/24 Order Info: [id number] - MIACRE Performed By: #### L 502.0250, L500.4050, L500.4100 #### [facility] [address] [place], [address] MICROALBUMIN,UR 12.6 mg/L Normal NO RANGE EST. [facility] Comment on above: Order Comment: Order Date: 02/12/24 Order Info: [id number] - MIACRE Performed By: #### L 502.0250, L500.4050, L500.4100 #### [facility] [address] [place], [address] Brain without Contraston Brain without Contrast [facility] Imaging Services [address] [place] [address] Brain without Contrast MR#: [id number] Acct: [id number] Name: LENKA YBARRA Rep #: [id number] : 1975 M 49 From: Ihsan Wilhelm MD PCP: Dr. Ozzy Morejon MD Status: REG CLI Study: Brain without Contrast Date of Exam: 05/12/24 Exam# [id number] Ordering Dr: Ozzy Morejon MD [id number] STUDY: MRI BRAIN WITHOUT CONTRAST REASON FOR EXAM: Male, 49 years old. amaurosis fugax, chronic headaches, new onset visual aura TECHNIQUE: Standardized multiplanar fat and water weighted pulse sequences were obtained. COMPARISON: None. FINDINGS: Normal size of the ventricles and extra-axial spaces for the patient''s age. Normal white matter tracts of the supratentorial brain. There is no evidence for recent intracranial ischemia or other cause of cytotoxic edema on diffusion weighted imaging (DWI). Normal T2* images of the brain without demonstrated susceptibility artifact. There is no demonstrated hemosiderin stain. Normal bilateral basal ganglia. Normal thalami. There is no extra-axial fluid accumulation. Normal flow voids within the major intracranial circulation suggesting patency by spin echo criteria. Normal sella turcica, pituitary gland, infundibular stalk, optic chiasm and hypothalamus. Normal tectal plate and pineal gland. Normal midbrain, phillip and medulla. Normal cerebellum. Normal basal cisterns. 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 Normal bilateral internal auditory canals. No demonstrated orbital abnormality, within the constraints of a routine brain study. Normal visualized paranasal sinuses. Normal calvarium and skull base. Normal visualized soft tissue structures. Normal visualized upper cervical spine. MRI/Brain without Contrast IMPRESSION: Normal unenhanced MRI of the brain. Electronically Signed: Ihsan Wilhelm MD at 13:29 EST , CC: Dr. Ozzy Morejon MD Stock Crane Operator: Signed Normal [facility] Carotid Duplex Ultrasoundon 04-21-2024 Carotid Duplex Ultrasound [facility] Cardi[facility] Services [facility] [place] [address] Carotid Duplex Ultrasound 04/21/24 0804 MR#: [id number] Acct: [id number] Name: LENKA YBARRA Rep #: [id number] : 1975 49 From: Ozzy Kim MD Attending Dr: Dr. Ozzy Morejon MD Status: REG CL I Ordering Dr: Ozzy Morejon MD Date: 04/21/24 Location: [facility] Sex: M C Admitted: Reason For Study: Amaurosis Fugax Rt. Velocities/BP Lt. Velocities/BP Prox CCA 120/9 cm/sec. Prox CCA 101/24 cm/sec. Mid CCA 129/19 cm/sec. Mid CCA 97/23 cm/sec. Dist CCA 107/29 cm/sec. Dist CCA 99/23 cm/sec. Prox ICA 91/23 cm/sec. Prox ICA 103/30 cm/sec. Mid ICA 84/24 cm/sec. Mid ICA 78/30 cm/sec. Dist ICA 95/38 cm/sec. Dist ICA 84/28 cm/sec. Rt. ICA/CCA = 0.7. Lt. ICA/CCA = 1.1. Prox ECA 138/23 cm/sec. Prox ECA 110/18 cm/sec. Rt. Vert. 60/16 cm/sec. Lt. Vert. 62/17 cm/sec. Right Extracranial There is intimal thickening but no significant atherosclerotic plaque noted in the right common carotid artery. There is no significant atherosclerotic plaque noted in the right internal carotid artery. There is no significant atherosclerotic plaque noted in the right external carotid artery. Antegrade flow is noted in the right vertebral artery. Left Extracranial There is intimal thickening but no significant atherosclerotic plaque noted in the left common carotid artery. There is no significant atherosclerotic plaque noted in the left internal carotid artery. There is no significant atherosclerotic plaque noted in the left external carotid artery. Antegrade flow is noted in the left vertebral artery. Procedure Carotid Duplex 33621. This is a Carotid Duplex examination using B-mode, color flow and specral Doppler. Exam performed in department. VL/Carotid Duplex Ultrasound Interpretation Summary Normal right extracranial internal carotid. Normal left extracranial internal carotid. Patent and antegrade vertebrals bilaterally. Ordering Physician: Ozzy Morejon Referring Physician: Ozzy Morejon Performed By: Chacha Jarrett, RUTHY, RVT 04/21/24 1247 Date Ozzy Kim MD CC: Dr. Ozzy Morejon MD Date Dictated: 04/21/24 0804 Date Transcribed: 04/21/24 1247 Stock Crane Operator: Signed Normal [facility] Basic Metabolic Profile (BMP )on 11-28-2023 BUN Normal 7-18 [facility] Comment on above: Order Comment: Order Date: 08/14/23 Order Info: 0667- - BMP Result Comment: SPEC IMEN NOT COLLECTED. Performed By: #### L 500.2500 #### [facility] [address] [place], [address] BUN/CRE Normal 10-20 [facility] Comment on above: Order Comment: Order Date: 08/14/23 Order Info: [id number] - BMP Result Comment: SPEC IMEN NOT COLLECTED. Performed By: #### L 500.2500 #### [facility] [address] [place], [address] CA,Total Normal 8.5-10.1 [facility] Comment on above: Order Comment: Order Date: 08/14/23 Order Info: 0667- - BMP Result Comment: SPEC IMEN NOT COLLECTED. Performed By: #### L 500.2500 #### [facility] [address] [place], [address] CL Normal 98-107 [facility] Comment on above: Order Comment: Order Date: 08/14/23 Order Info: 0667- - BMP Result Comment: SPEC IMEN NOT COLLECTED. Performed By: #### L 500.2500 #### [facility] [address] [place], [address] CO2 Normal 21.0-32.0 [facility] Comment on above: Order Comment: Order Date: 08/14/23 Order Info: 0667-1 - BMP Result Comment: SPEC IMEN NOT COLLECTED. Performed By: #### L 500.2500 #### [facility] [address] [place], [address] CREAT,SERUM Normal 0.70-1.30 [facility] Comment on above: Order Comment: Order Date: 08/14/23 Order Info: 666- - BMP Result Comment: SPEC IMEN NOT COLLECTED. Performed By: #### L 500.2500 #### [facility] [address] [place], [address] EST GFR Normal >60 [facility] Comment on above: Order Comment: Order Date: 08/14/23 Order Info: 666- - BMP Result Comment: SPEC IMEN NOT COLLECTED. Performed By: #### L 500.2500 #### [facility] [address] [place], [address] EST GFR - AA Normal >60 [facility] Comment on above: Order Comment: Order Date: 08/14/23 Order Info: 666-05 - BMP Result Comment: SPEC IMEN NOT COLLECTED. Performed By: #### L 500.2500 #### [facility] [address] [place], [address] GAP Normal 5-15 [facility] Comment on above: Order Comment: Order Date: 08/14/23 Order Info: 666-05 - BMP Result Comment: SPEC IMEN NOT COLLECTED. Performed By: #### L 500.2500 #### [facility] [address] [place], [address] GLU Normal 74-106 [facility] Comment on above: Order Comment: Order Date: 08/14/23 Order Info: 666- - BMP Result Comment: SPEC IMEN NOT COLLECTED. Performed By: #### L 500.2500 #### [facility] [address] [place], [address] Potassium Normal 3.5-5.1 [facility] Comment on above: Order Comment: Order Date: 08/14/23 Order Info: 666- - BMP Result Comment: SPEC IMEN NOT COLLECTED. Performed By: #### L 500.2500 #### [facility] [address] [place], [address] Basic Metabolic Profile (BMP) Normal 136-145 [facility] Comment on above: Order Comment: Order Date: 08/14/23 Order Info: 0667-1 - BMP Result Comment: SPEC IMEN NOT COLLECTED. Performed By: #### L 500.2500 #### [facility] [address] [place], [address] Wrist min 3 Viewson 11-28-19 Wrist min 3 Views [facility] Imaging Services [address] [place] [address] Wrist min 3 Views MR#: [id number] Acct: [id number] Name: LENKA YBARRA Rep #: [id number] : 1975 M 48 From: Ihsan Wilhelm MD PCP: Dr. Ozzy Morejon MD Status: REG CLI Study: Wrist min 3 Views Date of Exam: 11/28/23 Exam# [id number] Ordering Dr: Anshul Alfred [id number] STUDY: X-RAY - RIGHT WRIST REASON FOR EXAM: Male, 48 years old. fu fx TECHNIQUE: 3 view(s) of the wrist were obtained. COMPARISON: None. FINDINGS: Healing nondisplaced oblique fracture of the radial styloid (Garcia fracture) with bony bridging. Normal radiocarpal articulation. Normal distal radioulnar articulation. Normal carpal bones. Normal carpal articulations. Normal carpometacarpal articulation of the thumb. Normal second through fifth carpometacarpal articulations. Normal visualized metacarpal bones. The soft tissue structures are unremarkable. RAD/Wrist min 3 Views IMPRESSION: Healing Garcia fracture. Electronically Signed: Ihsan Wilhelm MD at 16:43 EDT , CC: Dr. Anshul Alfred MD; Dr. Ozzy Morejon MD Stock Crane Operator: Signed Normal [facility] Wrist min 3 Viewson 11-08-19 Wrist min 3 Views [facility] Imaging Services [address] [place] [address] Wrist min 3 Views MR#: [id number] Acct: [id number] Name: LENKA YBARRA Rep #: [id number] : 1975 M 48 From: Kevin Chan MD PCP: Dr. Ozzy Morejon MD Status: REG CLI Study: Wrist min 3 Views Date of Exam: 11/08/23 Exam# [id number] Ordering Dr: Anshul Alfred [id number] STUDY: X-RAY - RIGHT WRIST REASON FOR EXAM: Male, 48 years old. Evaluate for distal radial fracture. TECHNIQUE: 3 view(s) of the wrist were obtained. COMPARISON: October 30, 2023 FINDINGS: Oblique nondisplaced fracture at the base of the radial styloid with intra-articular extension. Normal radiocarpal articulation. Normal distal radioulnar articulation. Normal carpal bones. Normal carpal articulations. Normal carpometacarpal articulation of the thumb. Normal second through fifth carpometacarpal articulations. Normal visualized metacarpal bones. Diffuse mild soft tissue swelling. RAD/Wrist min 3 Views IMPRESSION: Radial styloid fracture with intra-articular extension. Soft tissue swelling. Electronically Signed: Kevin Chan MD at 15:02 EDT , CC: Dr. Anshul Alfred MD; Dr. Ozzy Morejon MD Stock Crane Operator: Signed Normal [facility] Wrist min 3 Viewson 10-30-19 Wrist min 3 Views [facility] Imaging Services [address] [place] [address] Wrist min 3 Views MR#: [id number] Acct: [id number] Name: LENKA YBARRA Rep #: [id number] : 1975 M 48 From: Raheem Capellan MD PCP: Dr. Ozzy Morejon MD Status: DEP CLI Study: Wrist min 3 Views Date of Exam: 10/30/23 Exam# [id number] Ordering Dr: Ozzy Morejon MD ADDENDUM by Dr. Raheem Capellan MD on 11/12/23 at 0826 ADDENDUM [id number] There is a subtle oblique nondisplaced fracture at the base of the radial styloid with intra-articular extension, suggested on the oblique projection. Electronically Signed: Raheem Capellan MD at 8:26 EDT Reading Location ID and State: [address] [place] [address] , Service support , 11/12/23 08 Date cc: Dr. Ozzy Morejon MD * Signed ADDENDUM by Dr. Raheem Capellan MD on 11/12/23 at 0826 RAD/Wrist min 3 Views IMPRESSION: undefined 11/12/23 0852 Date cc: Dr. Ozzy Morejon MD * Signed [id number] STUDY: X-RAY - RIGHT WRIST REASON FOR EXAM: Male, 48 years old. Wrist pain. Right wrist pain and swelling after falling yesterday. TECHNIQUE: 3 views of the right wrist were obtained. COMPARISON: None. FINDINGS: Normal visualized distal radius and ulna. Normal radiocarpal articulation. Normal distal radioulnar articulation. Normal carpal bones. Normal carpal articulations. Normal carpometacarpal articulation of the thumb. Normal second through fifth carpometacarpal articulations. Normal visualized metacarpal bones. The soft tissue structures are unremarkable. There is no demonstrated acute fracture. RAD/Wrist min 3 Views IMPRESSION: Normal x-ray examination of the right wrist. Electronically Signed: Raheem Capellan MD at 11:44 EDT , CC: Dr. 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 Chloride [Moles/Vol] 108 mmol/L 98-107 [facility] Glucose [Mass/Vol] 109 mg/dL 74-106 [facility] Comment on above: Fasting Glucose resu lt from 100 to 125 mg/dL suggests IMPAIRED HOMEOSTASIS per A.D.A. criteria. Potassium [Moles/Vol] 3.9 mmol/L 3.5-5.1 [facility] Protein [Mass/Vol] 7.3 g/dL 6.4-8.2 [facility] Sodium [Moles/Vol] 139 mmol/L 136-145 [facility] Comprehensive Metabolic Prof ilon 08-14-2023 Albumin [Mass/Vol] 3.8 g/dL Normal 3.2-5.0 [facility] Comment on above: Order Comment: Order Date: 08/14/23 Order Info: 0786-1 - CMP Performed By: #### L [id number] #### [facility] [address] [place], [address] Albumin/Globulin [Mass ratio] 1.1 {ratio} Normal 0.9-2.4 [facility] Comment on above: Order Comment: Order Date: 08/14/23 Order Info: 0786-1 - CMP Performed By: #### L [id number] #### [facility] [address] [place], [address] ALK P 102 U/L Normal 45-117 [facility] Comment on above: Order Comment: Order Date: 08/14/23 Order Info: 0786-1 - CMP Performed By: #### L [id number] #### [facility] [address] [place], [address] ALT [Catalytic activity/Vol] 33 U/L Normal 16-61 [facility] Comment on above: Order Comment: Order Date: 08/14/23 Order Info: 0786-1 - CMP Performed By: #### L [id number] #### [facility] [address] [place], [address] AST [Catalytic activity/Vol] 25 U/L Normal 15-37 [facility] Comment on above: Order Comment: Order Date: 08/14/23 Order Info: 0786-1 - CMP Performed By: #### L [id number] #### [facility] [address] [place], [address] Bilirubin [Mass/Vol] 0.40 mg/dL Normal 0.20-1.00 [facility] Comment on above: Order Comment: Order Date: 08/14/23 Order Info: 0786-1 - CMP Result Comment: For patients on eltrombopag therapy, use of Dimension [place] TBIL is not recommended. Performed By: #### L [id number] #### [facility] [address] [place], [address] BUN/CRE 14.4 RATIO Normal 10-20 [facility] Comment on above: Order Comment: Order Date: 08/14/23 Order Info: 0786-1 - CMP Performed By: #### L [id number] #### [facility] [address] [place], [address] CA,Total 9.0 mg/dL Normal 8.5-10.1 [facility] Comment on above: Order Comment: Order Date: 08/14/23 Order Info: 0786-1 - CMP Performed By: #### L [id number] #### [facility] [address] [place], [address] Chloride [Moles/Vol] 108 mmol/L High 98-107 [facility] Comment on above: Order Comment: Order Date: 08/14/23 Order Info: 0786-1 - CMP Performed By: #### L [id number] #### [facility] [address] [place], [address] CO2 [Moles/Vol] 24.0 mmol/L Normal 21.0-32.0 [facility] Comment on above: Order Comment: Order Date: 08/14/23 Order Info: 0786-1 - CMP Performed By: #### L [id number] #### [facility] [address] [place], [address] Creatinine [Mass/Vol] 0.97 mg/dL Normal 0.70-1.30 [facility] Comment on above: Order Comment: Order Date: 08/14/23 Order Info: 0786-1 - CMP Result Comment: The validity of the calculated GFR GFRAA in patients over 70 years has not been determined. Clinical correlation is essential. Performed By: #### L [id number] #### [facility] [address] [place], [address] EST GFR - AA 107 mL/min Normal >60 [facility] Comment on above: Order Comment: Order Date: 08/14/23 Order Info: 0786-1 - CMP Result Comment: Afri can Australian GFR Calc Performed By: #### L [id number] #### [facility] [address] [place], [address] GAP 7 Normal 5-15 [facility] Comment on above: Order Comment: Order Date: 08/14/23 Order Info: 0786-1 - CMP Performed By: #### L [id number] #### [facility] [address] [place], [address] GFR/1.73 sq M.predicted among non-blacks MDRD (S/P/Bld) [Vol rate/Area] 88 mL/min/{1.73_m2} Normal >60 [facility] Comment on above: Order Comment: Order Date: 08/14/23 Order Info: 0786-1 - CMP Result Comment: Non- GFR Calc Performed By: #### L [id number] #### [facility] [address] [place], [address] Globulin (S) [Mass/Vol] 3.5 g/dL Normal 2.2-4.2 [facility] Comment on above: Order Comment: Order Date: 08/14/23 Order Info: 0786-1 - CMP Performed By: #### L [id number] #### [facility] [address] [place], [address] Glucose [Mass/Vol] 109 mg/dL High 74-106 [facility] Comment on above: Order Comment: Order Date: 08/14/23 Order Info: 0786-1 - CMP Result Comment: Fast ing Glucose result from 100 to 125 mg/dL suggests IMPAIRED HOMEOSTASIS per A.D.A. criteria. Performed By: #### L [id number] #### [facility] [address] [place], [address] Potassium [Moles/Vol] 3.9 mmol/L Normal 3.5-5.1 [facility] Comment on above: Order Comment: Order Date: 08/14/23 Order Info: 0786-1 - CMP Performed By: #### L [id number] #### [facility] [address] [place], [address] Sodium [Moles/Vol] 139 mmol/L Normal 136-145 [facility] Comment on above: Order Comment: Order Date: 08/14/23 Order Info: 0786-1 - CMP Performed By: #### L [id number] #### [facility] [address] [place], [address] T PROT 7.3 g/dL Normal 6.4-8.2 [facility] Comment on above: Order Comment: Order Date: 08/14/23 Order Info: 0786-1 - CMP Performed By: #### L [id number] #### [facility] [address] [place], [address] Urea nitrogen [Mass/Vol] 14 mg/dL Normal 7-18 [facility] Comment on above: Order Comment: Order Date: 08/14/23 Order Info: 0786-1 - CMP Performed By: #### L [id number] #### [facility] [address] [place], [address] Laboratory - Chemistry and C hemistry - challengeOrdered By: Ozzy Morejon on 08-14-2023 Albumin/Globulin [Mass ratio] 1.1 {ratio} 0.9-2.4 [facility] ALP [Catalytic activity/Vol] 102 U/L 45-117 [facility] ALT [Catalytic activity/Vol] 33 U/L 16-61 [facility] CO2 [Moles/Vol] 24.0 mmol/L 21.0-32.0 [facility] Globulin (S) [Mass/Vol] 3.5 g/dL 2.2-4.2 [facility] Urea nitrogen/Creatinine [Mass ratio] 14.4 mg/mg 10-20 [facility] No Panel InformationOrdered By: Ozzy Morejon on 08-14-2023 Estimated GFR (MDRD) Amer 107 mL/min >60 [facility] Comment on above: GFR Calc Estimated GFR (MDRD) Non-Af Amer 88 mL/min >60 [facility] Comment on above: Non- GFR Calc Serum or plasma calcium nicolette urement (mass/volume)Ordered By: Ozzy Morejon on 08-14-2023 Calcium [Mass/Vol] 9.0 mg/dL 8.5-10.1 [facility] Serum or plasma creatinine m easurement (mass/volume)Ordered By: Ozzy Morejon on 08-14-2023 Creatinine [Mass/Vol] 0.97 mg/dL 0.70-1.30 [facility] Comment on above: The validity of the calculated GFR & GFRAA in patients over 70 years has not been determined. Clinical correlation is essential. Serum or plasma urea nitroge n measurement (mass/volume)Ordered By: Ozzy Morejon on 08-14-2023 Urea nitrogen [Mass/Vol] 14 mg/dL 7-18 [facility] Thin prep Papanicolaou smear with manual screeningOrdered By: Ozzy Morejon on 08-14-2023 Thin prep Papanicolaou smear with manual screening 3.8 g/dL 3.2-5.0 [facility] Thin prep Papanicolaou smear with manual screening 25 U/L 15-37 [facility] Thin prep Papanicolaou smear with manual screening 7 5-15 [facility] Basophil percentageOrdered B y: Ozzy Morejon on 02-05-2023 Bilirubin [Mass/Vol] 0.40 mg/dL 0.20-1.00 [facility] Comment on above: For patients on eltr ombopag therapy, use of Dimension [place] TBIL is not recommended. Chloride [Moles/Vol] 109 mmol/L 98-107 [facility] Cholesterol [Mass/Vol] 169 mg/dL <200 [facility] Comment on above: <200 mg/dL Desirable 200-240 mg/dL Borderline >240 mg/dL High Risk Glucose [Mass/Vol] 101 mg/dL 74-106 [facility] Comment on above: Fasting Glucose resu lt from 100 to 125 mg/dL suggests IMPAIRED HOMEOSTASIS per A.D.A. criteria. Potassium [Moles/Vol] 3.9 mmol/L 3.5-5.1 [facility] Protein [Mass/Vol] 7.1 g/dL 6.4-8.2 [facility] Sodium [Moles/Vol] 140 mmol/L 136-145 [facility] Triglyceride [Mass/Vol] 192 mg/dL <199 [facility] Comment on above: The drugs N-Acetylcy steine and Metamizole may falsely depress this assay.Serum Triglycerides Reference Interval Normal <150 mg/dL Borderline high 150 - 199 mg/dL High 200 - 499 mg/dL Very High > or = 500 mg/dL Laboratory - Chemistry and C hemistry - challengeOrdered By: Ozzy Morejon on 02-05-2023 ALP [Catalytic activity/Vol] 104 U/L 45-117 [facility] ALT [Catalytic activity/Vol] 31 U/L 16-61 [facility] CO2 [Moles/Vol] 24.0 mmol/L 21.0-32.0 [facility] Globulin (S) [Mass/Vol] 3.5 g/dL 2.2-4.2 [facility] Urea nitrogen/Creatinine [Mass ratio] 14.2 mg/mg 10-20 [facility] No Panel InformationOrdered By: Ozzy Morejon on 02-05-2023 Estimated GFR (MDRD) Amer 84 mL/min >60 [facility] Comment on above: GFR Calc Estimated GFR (MDRD) Non-Af Amer 69 mL/min >60 [facility] Comment on above: Non- GFR Calc Urine Microalbumin/Creatinine Ratio 3.1 mg/g CRE <30 [facility] Serum or plasma albumin nicolette urement (mass/volume)Ordered By: Ozzy Morejon on 02-05-2023 Albumin [Mass/Vol] 3.6 g/dL 3.2-5.0 [facility] Serum or plasma albumin/glob ulin mass ratioOrdered By: Ozzy Morejon on 02-05-2023 Albumin/Globulin [Mass ratio] 1.0 {ratio} 0.9-2.4 [facility] Serum or plasma calcium nicolette urement (mass/volume)Ordered By: Ozzy Morejon on 02-05-2023 Calcium [Mass/Vol] 8.3 mg/dL 8.5-10.1 [facility] Serum or plasma cholesterol in HDL measurement (mass/volume)Ordered By: Ozzy Morejon on 02-05-2023 Cholesterol in HDL [Mass/Vol] 33 mg/dL >40 [facility] Comment on above: The drugs N-Acetylcy steine and Metamizole may falsely depress this assay. Reference Range HDL <40 mg/dL Low HDL Cholesterol HDL >or= 60 mg/dL High HDL Cholesterol Serum or plasma cholesterol in VLDL measurement (mass/volume)Ordered By: Ozzy Morejon on 02-05-2023 Cholesterol in VLDL [Mass/Vol] 38 mg/dL 5-40 [facility] Serum or plasma creatinine m easurement (mass/volume)Ordered By: Ozzy Morejon on 02-05-2023 Creatinine [Mass/Vol] 1.20 mg/dL 0.70-1.30 [facility] Comment on above: The validity of the calculated GFR & GFRAA in patients over 70 years has not been determined. Clinical correlation is essential. Serum or plasma low density lipoprotein (LDL) cholesterol measurement (mass/volume)Ordered By: Ozzy Morejon on 02-05-2023 Cholesterol in LDL [Mass/Vol] 98 mg/dL 0-130 [facility] Serum or plasma urea nitroge n measurement (mass/volume)Ordered By: Ozzy Morejon on 02-05-2023 Urea nitrogen [Mass/Vol] 17 mg/dL 7-18 [facility] Thin prep Papanicolaou smear with manual screeningOrdered By: Ozzy Morejon on 02-05-2023 Thin prep Papanicolaou smear with manual screening 20 U/L 15-37 [facility] Thin prep Papanicolaou smear with manual screening 7 5-15 [facility] Thin prep Papanicolaou smear with manual screening 8.6 mg/L NO RANGE EST. [facility] Urine creatinine measurement (mass/volume)Ordered By: Ozzy Morejon on 02-05-2023 Creatinine (U) [Mass/Vol] 275.00 mg/dL NO RANGE EST. [facility] EP PanelOrdered By: Dr. Sergio garcias on 07-05-2022 Gastrointestinal pathogens panel ZIA+probe (Stl) [facility] Basophil percentageOrdered B y: Dr. Morejon on 06-15-2022 Bilirubin [Mass/Vol] 0.40 mg/dL 0.20-1.00 [facility] Comment on above: For patients on eltr ombopag therapy, use of Dimension [place] TBIL is not recommended. Chloride [Moles/Vol] 107 mmol/L 98-107 [facility] Glucose [Mass/Vol] 99 mg/dL 74-106 [facility] Potassium [Moles/Vol] 3.8 mmol/L 3.5-5.1 [facility] Protein [Mass/Vol] 7.4 g/dL 6.4-8.2 [facility] Sodium [Moles/Vol] 139 mmol/L 136-145 [facility] Erythrocyte sedimentation ra teOrdered By: Dr. Morejon on 06-15-2022 ESR (Bld) [Velocity] 2 mm/h 0-20 [facility] Laboratory - Chemistry and C hemistry - challengeOrdered By: Dr. Morejon on 06-15-2022 ALP [Catalytic activity/Vol] 97 U/L 45-117 [facility] ALT [Catalytic activity/Vol] 25 U/L 16-61 [facility] Amylase [Catalytic activity/Vol] 30 U/L 15-85 [facility] CO2 [Moles/Vol] 25.0 mmol/L 21.0-32.0 [facility] Globulin (S) [Mass/Vol] 3.5 g/dL 2.2-4.2 [facility] Lipase [Catalytic activity/Vol] 190 U/L 73-393 [facility] Urea nitrogen/Creatinine [Mass ratio] 17.1 mg/mg 10-20 [facility] No Panel InformationOrdered By: Dr. Morejon on 06-15-2022 Estimated GFR (MDRD) Amer 98 mL/min >60 [facility] Comment on above: GFR Calc Estimated GFR (MDRD) Non-Af Amer 81 mL/min >60 [facility] Comment on above: Non- GFR Calc Urine Microalbumin/Creatinine Ratio 3.9 mg/g CRE <30 [facility] Vitamin D 25-Hydroxy 26.5 ng/mL [facility] Comment on above: Vitamin D 25(OH) Sta tus Range Deficiency <20 ng/mL (50nmol/L) Insufficiency 20 - 30 ng/mL (50 - 75 nmol/L) Sufficiency 30 - 100 ng/mL (75 - 250 nmol/L) Toxicity >100 ng/mL (>250 nmol/L) Serum or plasma C reactive p rotein measurement (mass/volume)Ordered By: Dr. Morejon on 06-15-2022 CRP [Mass/Vol] mg/L 0.0-3.0 [facility] Comment on above: C-Reactive Protein ( CRP) provides useful information for thediagnosis, therapy and monitoring of inflammatory processesand associated diseases. For the evaluation of Relative Riskfor Cardiovascular Disease, a High Sensitivity CRP (HSCRP)should be ordered. Serum or plasma albumin nicolette urement (mass/volume)Ordered By: Dr. Morejon on 06-15-2022 Albumin [Mass/Vol] 3.9 g/dL 3.2-5.0 [facility] Serum or plasma albumin/glob ulin mass ratioOrdered By: Dr. Morejon on 06-15-2022 Albumin/Globulin [Mass ratio] 1.1 {ratio} 0.9-2.4 [facility] Serum or plasma calcium nicolette urement (mass/volume)Ordered By: Dr. Morejon on 06-15-2022 Calcium [Mass/Vol] 8.9 mg/dL 8.5-10.1 [facility] Serum or plasma creatinine m easurement (mass/volume)Ordered By: Dr. Morejon on 06-15-2022 Creatinine [Mass/Vol] 1.05 mg/dL 0.70-1.30 [facility] Comment on above: The validity of the calculated GFR & GFRAA in patients over 70 years has not been determined. Clinical correlation is essential. Serum or plasma urea nitroge n measurement (mass/volume)Ordered By: Dr. Morejon on 06-15-2022 Urea nitrogen [Mass/Vol] 18 mg/dL 7-18 [facility] Thin prep Papanicolaou smear with manual screeningOrdered By: Dr. Morejon on 06-15-2022 Thin prep Papanicolaou smear with manual screening 21 U/L 15-37 [facility] Thin prep Papanicolaou smear with manual screening 7 5-15 [facility] Thin prep Papanicolaou smear with manual screening 6.0 mg/L NO RANGE EST. [facility] Urine creatinine measurement (mass/volume)Ordered By: Dr. Morejon on 06-15-2022 Creatinine (U) [Mass/Vol] 155.00 mg/dL NO RANGE EST. [facility] Vital Signs Date Time Vital Sign Value Performing Clinician Billi connery 02-20-2023 09:22-0400 Body height 172.[address] Ozzy Morejon Work Phone: [facility] 02-20-2023 09:22-0400 Body mass index (BMI) [Ratio] 31.8 kg/m2 Dr. Ozzy Morejon Work Phone: [facility] 02-20-2023 09:22-0400 Body temperature 98 [degF] Dr. Ozzy Morejon Work Phone: [facility] 02-20-2023 09:22-0400 Body weight 95.[address] Ozzy Morejon Work Phone: [facility] 02-20-2023 09:22-0400 Diastolic blood pressure 76 mm[Hg] Dr. Ozzy Morejon Work Phone: [facility] 02-20-2023 09:22-0400 Heart rate 64 /min Dr. Ozzy Morejon Work Phone: [facility] 02-20-2023 09:22-0400 Respiratory rate 14 /min Dr. Ozzy Morejon Work Phone: [facility] 02-20-2023 09:22-0400 SaO2% (BldA) [Mass fraction] 98 % Dr. Ozzy Morejon Work Phone: [facility] 02-20-2023 09:22-0400 Systolic blood pressure 130 mm[Hg] Dr. Ozzy Morejon Work Phone: [facility] 08-18-2022 08:55-0400 Body temperature 97.6 [degF] Dr. Ozzy Morejon Work Phone: [facility] 08-18-2022 08:55-0400 Diastolic blood pressure 73 mm[Hg] Dr. Ozzy Morejon Work Phone: [facility] 08-18-2022 08:55-0400 Heart rate 60 /min Dr. Ozzy Morejon Work Phone: [facility] 08-18-2022 08:55-0400 Respiratory rate 14 /min Dr. Ozzy Morejon Work Phone: [facility] 08-18-2022 08:55-0400 SaO2% (BldA) [Mass fraction] 94 % Dr. Ozzy Morejon Work Phone: [facility] 08-18-2022 08:55-0400 Systolic blood pressure 128 mm[Hg] Dr. Ozzy Morejon Work Phone: [facility] 08-18-2022 07:32-0400 Body height 172.[address] Ozzy Morejon Work Phone: [facility] 08-18-2022 07:32-0400 Body mass index (BMI) [Ratio] 31.5 kg/m2 Dr. Ozzy Morejon Work Phone: [facility] 08-18-2022 07:32-0400 Body weight [address] Ozzy Morejon Work Phone: [facility] 07-14-2022 10:27-0500 Body mass index (BMI) [Ratio] 31.9 kg/m2 Dr. Ozzy Morejon Work Phone: [facility] 07-14-2022 10:27-0500 Body weight 95.[address] Ozzy Morejon Work Phone: [facility] Encounters Encounter Date Encounter Type Care Provider Facility Start: 06-23-2024 Encounter for genera l adult medical examination with abnormal findings Ozzy Morejon [facility] Start: 05-30-2024 End: 05-30-2024 ambulatory Ozzy Morejon Facility:[facility] Start: 05-12-2024 End: 05-12-2024 ambulatory Ozzy Morejon Facility:[facility] Start: 04-21-2024 ambulatory Ozzy Kim Facility:[facility] [place] Start: 04-21-2024 End: 04-21-2024 ambulatory Ozzy Morejon Facility:[facility] Start: 11-28-2023 End: 11-28-2023 ambulatory Ozzy Morejon Facility:[facility] Start: 11-08-2023 End: 11-08-2023 ambulatory Ozzy Morejon Facility:[facility] Start: 10-30-2023 End: 10-30-2023 ambulatory Ozzy Morejon Facility:[facility] Start: 08-14-2023 End: 08-14-2023 ambulatory [facility] Work Phone: Start: 08-14-2023 End: 08-14-2023 Patient encounter procedure [facility] Start: 08-14-2023 End: 08-14-2023 ambulatory Ozzy Morejon Facility:[facility] Start: 02-20-2023 End: 02-20-2023 ambulatory Dr. Ozzy Morejon Work Phone: [facility] Work Phone: Start: 02-20-2023 End: 02-20-[address] Ozzy Morejon Work Phone[facility] Start: 02-20-2023 End: 02-20-[address] Ozzy Morejon Work Phone: [facility] Work Phone: Start: 02-05-2023 End: 02-05-[address] Ozzy Morejon Work Phone: [facility] Work Phone: Start: 08-18-2022 Non-patient / Non-visit Dr. Abdiel Morejon Work Phone: [facility] Start: 08-18-2022 End: 08-18-2022 Admission to same day surgery center Dr. Ozzy Morejon Work Phone: [facility]-Endoscopy Start: 08-18-2022 End: 08-18-[address] Ozzy Morejon Work Phone: [facility] Work Phone: Start: 07-14-2022 Non-patient / Non-visit Dr. Abdiel Morejon Work Phone: [facility] Start: 07-05-2022 End: 07-05-2022 ambulatory [facility] Work Phone: Start: 07-05-2022 End: 07-05-2022 Patient encounter procedure [facility]-Laboratory, Specimen Start: 06-29-2022 End: 06-29-2022 ambulatory [facility] Work Phone: Start: 06-29-2022 End: 06-29-2022 Patient encounter procedure [facility]-Ultrasound, [facility] Start: 06-19-2022 End: 06-19-2022 ambulatory [facility] Work Phone: Start: 06-19-2022 End: 06-19-2022 Patient encounter procedure [facility]-Ultrasound, [facility] Start: 06-15-2022 End: 06-15-2022 ambulatory [facility] Work Phone: Start: 06-15-2022 End: 06-15-2022 Patient encounter procedure [facility]-Laboratory, [place] [facility] Procedures Date Procedure Procedure Detail Performing Clinician Start: 02-20-2023 Diagnostic radiograp hy of finger Dr. Ozzy Morejon Work Phone: Start: 08-18-[address] Ozzy Bucio [facility] Work Phone: Start: 06-29-2022 Ultrasound elastography Start: 06-19-2022 Ultrasonography of abdomen Enteric Bacteriology Plan of Treatment Date Care Activity Detail Author Start: 08-18-2022 Patient discharge [facility] Colonoscopy [facility] Patient referral [facility] Work Phone: Payers Date Payer Category Payer Self-pay [id number] 2023 Unknown [id number] Unknown [id number] Unknown [facility] LYNDSE[facility] [id number] Unknown [facility] PACKAGE PLAN [id number] Unknown [id number] 2.16.8 [id number] Unknown [id number] 2.16.8 [id number] Unknown [id number] 2.16.8 [id number] Unknown [id number] 2.16.8 [id number] Unknown [id number] 2.16.8 [id number] Unknown [id number] 2.16.8 [id number] Unknown [id number] 2.16.8 [id number] Unknown [id number] 2.16.8 [id number] Social History Date Type Detail [facility] Work Phone: Start: 1975 Sex Assigned At Male [facility] Start: 08-18-2022 End: 04-17-2023 Tobacco smoking status [facility] Unknown if ever smoked [facility] Goals Date Patient Goal Desired Activity /State Mental Status Date Assessment Result Facility 08-18-2022 Cognitive function Voice/Name [facility] Work Phone: History and physical note 08-18-2022 Note Date & Type Note Facility 08-18-2022 History and physi juan note Note Date/Time August 18, 2022 8:15am [facility] Medical Records Department [address] [place] [address] History & Physical Exam 08/18/22813 MR#: [id number] Acct: [id number] Name: LENKA YBARRA Rep #:[id number] : 1975 47 From: Eddie jordan MD PCP: Dr. Ozzy Morejon MD Status:[facility] Location: [place] [address] HPI - General HPI Narrative LENKA YBARRA, is a 47 M who presents for screening colonoscopy. Patient is never had a colonoscopy in the past. He denies any abdominal pain or blood in the stool. He has no family history of colon cancer. He is not on any blood thinners. [facility] Medical History (Updated 08/14/22 @ 12:14 by Roxanna Guillen) Alcohol use Allergic rhinitis, unspecified Back pain Born premature at 35 weeks of completed gestation CPAP (continuous positive airway pressure) dependence Fatty liver Former smoker GERD (gastroesophageal reflux disease) History of echocardiogram HTN (hypertension) Injury of back Leg cramps Migraine headache Wears glasses Home Medications cyclobenzaprine 10 mg tablet 10 mg PO HS PRN Spasms 07/14/22 [History Last Taken Unknown] famotidine 20 mg tablet 20 mg PO BID 07/14/22 [History Last Taken Unknown] naproxen 500 mg tablet 500 mg PO BID PRN Pain 07/14/22 [History Last Taken Unknown] telmisartan 20 mg tablet 20 mg PO QHS 07/14/22 [History Last Taken Unknown] Allergy/AdvReac Type Severity Reaction Status Date / Time animal dander Allergy Itching Verified 08/18/22 07:32 Environmental Allergies: Allergy Other Verified 08/18/22 07:32 Uncoded house dust Allergy Itching Verified 08/18/22 07:32 mold Allergy Itching Verified 08/18/22 07:32 pollen extracts Allergy Itching Verified 08/18/22 07:32 Family History (Updated 07/14/22 @ 10:17 by Nelida Dela Cruz) Mother Colon polyps Diabetes Surgical History (Updated 07/14/22 @ 10:15 by Nelida Dela Cruz) History of vasectomy Hx of appendectomy Social History (Updated 07/14/22 @ 10:17 by Nelida Dela Cruz) current occupational status: employed Smoking Status: Former smoker Past Medical/Surgical History Planned Operation Planned Operative Procedure/s: CSCOPE OA Previous Hospitalizations/Surgeries HX Hospitalizations: No Any Problems With Anesthesia: No (SHIVERING) You/Your Family Experience Fever (Hyperthermia) With Anes: No Cholinesterase deficiency: No Cardiovascular Hx Hypertension: Yes (BORDERLINE/PREVENTIVE DUE TO FAMILY HX) Respiratory Hx Sleep Apnea: Yes CPAP: Yes BIPAP: No Hx Respiratory Tract Infection/Cold (presently): No Result (for STOP score): Positive Smoking Status: Former smoker Neurological Does patient have nerve stimulator: No Reproduction : No Miscellaneous Recent Exposure to Contagious Disease: No Allergies animal dander Allergy (Verified 08/18/22 07:32) Itching Weekly allergy shot Environmental Allergies: Uncoded Allergy (Verified 08/18/22 07:32) Other Weekly allergy shot house dust Allergy (Verified 08/18/22 07:32) Itching Weekly allergy shot mold Allergy (Verified 08/18/22 07:32) Itching Weekly allergy shot pollen extracts Allergy (Verified 08/18/22 07:32) Itching Weekly allergy shot Discharge Is Pt Admitted From a Halfway, or a Halfway: No After D/C, Where Do you Plan to Go: Return Home Vital Signs Vital Signs Vital Signs: 08/18/22 07:32 08/18/22 07:32 Temperature 97.6 F L Temperature Source Temporal Pulse Rate 67 Respiratory Rate 16 Respiratory Pattern Normal Blood Pressure 137/85 H Blood Pressure Mean 102 Blood Pressure Source Monitor Blood Pressure Position Semi-Fowlers Blood Pressure Location Left Arm Pulse Ox 100 Oxygen Delivery Method Room Air Weight Weight: 207 lb 3.752 oz Body Mass Index (BMI) 31.5 Physical Exam Const alert and oriented x3 HEENT normocephalic Eyes PERRL Resp normal respiratory effort and normal air movement Cardio regular rate and regular rhythm GI soft to palpation, non-tender and non-distended Extremity normal to inspection Assessment & Plan Assessment/Plan (1) Encounter for screening for malignant neoplasm of colon: PLAN: I explained endoscopy in detail to the patient. I explained the risks including but not limited to stroke or heart attack with anesthesia, perforationof the GI tract, bleeding, infection. I explained that any of these could necessitate further emergency surgery. The patient understands and all questions were answered sufficiently. The patient wishes to proceed with procedure. Eddie Hightower MD Pager: [facility] [address] [place] [address], [address] [place] [address] Office: Surgery Risks - Colonoscopy Risks Include but are not Limited To: Risks include but are not limited to: Bleeding, perforation requiring further surgery, inability to complete colonoscopy requiring barium enema. 08/18/22 0815 <Electronically signed by Eddie Hightower MD> Cosigner Signature (if applicable): CC: Dr. Eddie Hightower MD; Dr. Ozzy Morejon MD~ Signed [facility] Work Phone: Procedure note 08-18-2022 Note Date & Type Note Facility 08-18-2022 Procedure note [facility] Procedure note 08-18-2022 Note Date & Type Note Facility 08-18-2022 Procedure note [facility] Evaluation note Note Date & Type Note Facility Evaluation note No assessment information availa ble [facility] Work Phone: Evaluation note Note Date & Type Note Facility Evaluation note Diagnosis Onset Date Encounter for screening for malignant neoplasm of colon acute [facility] Work Phone: Evaluation note Note Date & Type Note Facility Evaluation note Diagnosis Onset Date Finger pain, left chronic 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 Foreign body in skin of left ring finger chronic Injury while gardening chron ic Swelling of left ring finger chronic [facility] Work Phone: Chief Complaint and Reason for Visit Chief Complaint ABD PAIN Chief Complaint ABD PAIN FATTY LIVER Chief Complaint ABD PAIN FATTY 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 Chief Complaint ABD PAIN 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 Amb Documentation Reason for Visit Encounter for screen ing for malignant neoplasm of colon Chief Complaint THORN EMBEDDED WITH SWELLING OF JOINT possible foreign body, thorn left finger Reason for Visit Finger pain, left Foreign body granuloma of soft tissue of left hand Foreign body in skin of left ring finger Injury while gardening Swelling of left ring finger Advance Directives No Advanced Directives Records Found Advance Directive Response Recorded Date/ Time Living Will No August 14, 2022 12:04pm Power of Title [employer]garten [employer] No August 14 12:04pm Family History No Family History Records Found Relationship Condition Age at Onset Recorded Date/T cyn mother Polyp of colon Unknown Diabetes mellitus Unknown father Hypertension Unknown grandfather Alcohol abuse Unknown Malignant neoplasm Unknown grandmother Arthritis Unknown Malignant neoplasm of lung Unknown Summary Purpose Additional Source Comments Care Teams (unrecognized sec tion and content) Team Status: Active Member Role Status Dates Dr. Ozzy Morejon MD Family Provider Active Dr. Ozzy Morejon MD Primary Care Provider Active Team Status: Inactive Member Role Status Dates Dr. Ozzy Morejon MD Primary Care Provide r, Attending Provider, Referring Provider Active Team Status: Active Member Role Status Dates Dr. Ozzy Morejon MD Primary Care Provide r, Attending Provider, Referring Provider Active Team Status: Active Member Role Status Dates Dr. Ozzy Morejon MD Primary Care Provider Active [facility] Attending Provider Active Team Status: Active Member Role Status Dates Dr. Ozzy Morejon MD Primary Care Provider, Referring P rovider Active Dr. Eddie Hightower MD Attending Provider, Other Provider Active Team Status: Inactive Member Role Status Dates Dr. Ozzy Morejon MD Primary Care Provider, Referring P rovider Active Dr. Eddie Hightower MD Attending Provider Active Team Status: Inactive Member Role Status Dates Dr. Ozzy Morejon MD Primary Care Provider, Referring P rovider Active Dr. Mervin Guerrero MD Attending Provider Active Team Status: Inactive Member Role Status Dates Dr. Ozzy Morejon MD Primary Care Provider Active Alysha oDn [employer] FILTERER, [employer] FIL[employer]ER-C Attending Provider, Referri ng Provider Active Team Status: Inactive Member Role Status Dates Dr. Ozzy Morejon MD Primary Care Provider, Attending P rovider Active Goals (unrecognized section and content) Goals may be documented in a n alternate sectionGoals may be documented in an alternate sectionGoals may be documented in an alternate sectionGoals may be documented in an alternate sectionGoals may be documented in an alternate sectionGoals may be documented in an alternate section (unrecognized sect ion and content) No Status Records Found INFORMATION SOURCE (unrecogn ized section and content) DATE CREATED AUTHOR 06/25/2024 [facility] FOR RECORDS PERTAINING TO PATIENTS WHO ARE OR HAVE BEEN ENROLLED IN A CHEMICAL DEPENDENCY/SUBSTANCEABUSE PROGRAM, SOME INFORMATION MAY BE OMITTED. This clinical summary was aggregated from multiple sources. Caution should be exercised in using it in the provision of clinical care. This summary normalizes information from multiple sources, and as a consequence, information in this document may materially change the coding, format and clinical context of patient data. In addition, data may be omitted in some cases. CLINICAL DECISIONS SHOULD BE BASED ON THE PRIMARY CLINICAL RECORDS. [employer] [facility] provides no warranty or guarantee of the accuracy or completeness of information in this document.
[2025-03-06 12:27] LABS: AST(SGOT) 24 U/L (<=37); Alanine Aminotransfer ALT/SGPT 19 U/L (<=46); Albumin, Serum 4.5 g/dL (3.5-5.0); Alkaline Phosphatase 84 U/L (40-129); Anion Gap 10 (5-15); BUN 12 mg/dL (4-19); BUN/Creat Ratio 11.2 RATIO (10-20); Calcium,Total 9.3 mg/dL (7.6-11.0); Carbon Dioxide 26.1 mmol/L (21.0-32.0); Chloride 104 mmol/L (98-108); Cholesterol 192 mg/dL (<=200); Globulin 2.8 g/dL (2.2-4.2); Glucose 86 mg/dL (70-99); Low Density Lipoprotein Calc. 129 mg/dL; Potassium 4.0 mmol/L (3.3-5.1); Triglycerides 144 mg/dL; Very Low Density Lipoprotein 29 mg/dL (5-40); cholesterol:hdl ratio screen 5.13
== END | disposition home or self-care (01) ==
LOC: MTLAB 10:09
PROVIDERS: PCP Family Medicine; Referring Provider Family Medicine; Visit Provider Family Medicine
DX: K76.0 Fatty (change of) liver, not elsewhere classified (principal)
CPT/HCPCS: 36415; 80053; 80061